=== PATIENT | female | born 1935 | race Caucasian/White ===

== ENCOUNTER 2017-08-29 08:43 | Inpatient (IN) ==
[2017-08-29 09:29] LABS: Basophils % 0.3 % (0.0-0.8); Eosinophils # 0.2 10*3/uL (0.0-0.87); Eosinophils % 3.9 % (0.00-10.9); Hematocrit 37.1 VOL% (35.7-47.0); Hemoglobin 12.1 GM/DL (12.0-16.0); Immature Granulocytes % 0.3 %; Immature Granulocytes Absolute 0.02 #; Lymphocytes % 16.4 % (21.3-54.2); Mean Corpuscular HGB Conc 32.6 GM/DL (32-36); Mean Corpuscular Hemoglobin 31 PG (27-34); Mean Corpuscular Volume 96.1 FL (87-102); Mean Platelet Volume 10.2 FL (9.6-12.0); Monocytes # 0.4 10*3/uL (0.11-0.8); Monocytes % 6.7 % (1.7-12.7); Neutrophils # 4.4 10*3/uL (1.4-7.4); Neutrophils % 72.4 % (38.7-73.9); Platelet Count 142 T/CUMM (130-400); Red Blood Count 3.86 MC/CUMM (3.8-5.5); Red Cell Distribution Width 13.2 % (9.3-17.3); White Blood Count 6.1 T/CUMM (4-12)
[2017-08-29 09:44] LABS: Calcium 8.8 MG/DL (8.5-10.1); Osmolality,Calculated 284.3 MOS/KG (273-304); Potassium 3.8 MMOL/L (3.5-5.1)
[2017-08-29] MEDS ORDERED: MORPHINE 2 MG/1 ML SYRINGE IV STA (10:19)
[2017-08-29] MEDS ORDERED: MORPHINE 2 MG/1 ML SYRINGE ONE (10:24)
[2017-08-29] MEDS ORDERED: LABETALOL 20 MG/4 ML SYRINGE IV STA (10:35)
[2017-08-29] MEDS ORDERED: LABETALOL 20 MG/4 ML SYRINGE IV ONE (10:37)
[2017-08-29] MEDS ORDERED: ONDANSETRON 4 MG/2 ML VIAL ONE (11:37)
[2017-08-29] MEDS ORDERED: ONDANSETRON 4 MG/2 ML VIAL IV STA (11:37)
[2017-08-29] MEDS ORDERED: oxyCODONE IR 5 MG TABLET PO PRN (14:13)
[2017-08-29] MEDS ORDERED: MORPHINE 2 MG/1 ML SYRINGE IV PRN (14:14)
[2017-08-29] MEDS ORDERED: TUBERCULIN SKIN TEST 0.1 ML SYRINGE INTRADERM ONE (15:00)
[2017-08-29] MEDS: CEFEPIME 2,000 MG in SYRINGE 1 EACH IV SCH ×2 (15:41→23:08)
[2017-08-29] MEDS: methylPREDNISolone SOD SUC 125 MG/2 ML VIAL IV SCH ×2 (15:51→22:11)
[2017-08-29] MEDS: PANTOPRAZOLE 40 MG TABLET PO SCH (15:53)
[2017-08-29] MEDS: LOSARTAN 50 MG TABLET PO SCH (15:55)
[2017-08-29] MEDS: NEBIVOLOL 10 MG TABLET PO SCH (15:55)
[2017-08-29] MEDS: ASPIRIN EC 81 MG TABLET PO SCH (15:55)
[2017-08-29] MEDS: LABETALOL 20 MG/4 ML SYRINGE IV PRN (18:31)
[2017-08-29] MEDS: VANCOMYCIN INJ 1,000 MG in SODIUM CHLORIDE 0.9% 250 ML IV SCH (18:35)
[2017-08-29] MEDS: CALCIUM (CARBONATE)/VITAMIN D 500 MG-200 UNIT TABLET PO SCH (22:10)
[2017-08-30 03:45] LABS: Hematocrit 34.2 VOL% (35.7-47.0); Hemoglobin 11.6 GM/DL (12.0-16.0); Immature Granulocytes % 0.6 %; Immature Granulocytes Absolute 0.04 #; Lymphocytes # 0.5 10*3/uL (1.4-4.0); Lymphocytes % 6.5 % (21.3-54.2); Mean Corpuscular HGB Conc 33.9 GM/DL (32-36); Mean Corpuscular Hemoglobin 31 PG (27-34); Mean Corpuscular Volume 92.4 FL (87-102); Mean Platelet Volume 10.6 FL (9.6-12.0); Monocytes # 0.1 10*3/uL (0.11-0.8); Monocytes % 1.5 % (1.7-12.7); Neutrophils # 6.6 10*3/uL (1.4-7.4); Neutrophils % 91.4 % (38.7-73.9); Platelet Count 125 T/CUMM (130-400); White Blood Count 7.2 T/CUMM (4-12)
[2017-08-30 04:16] LABS: Calcium 8.6 MG/DL (8.5-10.1); Osmolality,Calculated 274.2 MOS/KG (273-304); Potassium 3.8 MMOL/L (3.5-5.1); Risk Ratio 3.52; VLDL CHOLESTEROL 8.6 MG/DL
[2017-08-30 04:51] LABS: Band Neutrophils 5 % (0-10); Lymphocytes 6 % (20-55); Platelet Estimate Adequate; Segmented Neutrophils 89 % (50-85); Total Cells Counted 100
[2017-08-30] MEDS: methylPREDNISolone SOD SUC 125 MG/2 ML VIAL IV SCH ×3 (06:12→22:44)
[2017-08-30] MEDS: CEFEPIME 2,000 MG in SYRINGE 1 EACH IV SCH ×3 (06:31→22:43)
[2017-08-30 07:16] LABS: Apearance,Urine CLEAR (Clear); Bilirubin,Urine Negative (Negative); Blood, Urine Negative (Negative); Glucose,Urine (UA) Negative (Negative); Ketones,Urine Negative (Negative); Mucus,Urine Occasional /LPF (Occasional); Nitrite,Urine Negative (Negative); Protein,Urine Negative; RBC,Urine 1 /HPF (0-4); Squamous Epithelial Cell,Urine Occasional /HPF (0-10); Urine Color Straw (Yellow); Urine Specific Gravity 1.006 (1.001-1.035); Urine Urobilinogen < 2.0 EU/DL (0.2-1.0); WBC,Urine <1 /HPF (0-6)
[2017-08-30] MEDS: NEBIVOLOL 10 MG TABLET PO SCH ×2 (07:35→09:35)
[2017-08-30] MEDS: LOSARTAN 50 MG TABLET PO SCH ×2 (07:36→09:35)
[2017-08-30] MEDS: CALCIUM (CARBONATE)/VITAMIN D 500 MG-200 UNIT TABLET PO SCH ×3 (07:37→20:28)
[2017-08-30] MEDS: ASPIRIN EC 81 MG TABLET PO SCH ×2 (07:37→09:35)
[2017-08-30] MEDS: PANTOPRAZOLE 40 MG TABLET PO SCH ×2 (07:38→09:36)
[2017-08-30] MEDS: ACETAMINOPHEN 325 MG TABLET PO PRN (07:38)
[2017-08-30 11:57] LABS: Fibrinogen Quant Value 407 MG% (200-400); PT Patient Result 10.6 SECS; Partial Thromboplastin Time 26.5 SECS (0-40)
[2017-08-30] MEDS: LABETALOL 20 MG/4 ML SYRINGE IV PRN (15:43)
[2017-08-30] MEDS: VANCOMYCIN INJ 1,000 MG in SODIUM CHLORIDE 0.9% 250 ML IV SCH (18:22)
[2017-08-30] MEDS ORDERED: diphenhydrAMINE 50 MG/1 ML VIAL IV PRN (20:01)
[2017-08-31 04:51] LABS: Basophils % 0.1 % (0.0-0.8); Hematocrit 31.4 VOL% (35.7-47.0); Hemoglobin 10.7 GM/DL (12.0-16.0); Immature Granulocytes % 0.6 %; Immature Granulocytes Absolute 0.08 #; Lymphocytes # 0.7 10*3/uL (1.4-4.0); Lymphocytes % 4.9 % (21.3-54.2); Mean Corpuscular HGB Conc 34.1 GM/DL (32-36); Mean Corpuscular Hemoglobin 32 PG (27-34); Mean Corpuscular Volume 93.2 FL (87-102); Mean Platelet Volume 10.9 FL (9.6-12.0); Monocytes # 0.4 10*3/uL (0.11-0.8); Monocytes % 2.9 % (1.7-12.7); Neutrophils # 12.8 10*3/uL (1.4-7.4); Neutrophils % 91.5 % (38.7-73.9); Platelet Count 122 T/CUMM (130-400); Red Blood Count 3.37 MC/CUMM (3.8-5.5); Red Cell Distribution Width 13.3 % (9.3-17.3)
[2017-08-31 05:16] LABS: Band Neutrophils 1 % (0-10); Lymphocytes 2 % (20-55); Platelet Estimate Normal; Segmented Neutrophils 95 % (50-85); Total Cells Counted 100
[2017-08-31 05:17] LABS: Osmolality,Calculated 278.8 MOS/KG (273-304); Potassium 3.9 MMOL/L (3.5-5.1)
[2017-08-31] MEDS: methylPREDNISolone SOD SUC 125 MG/2 ML VIAL IV SCH ×3 (06:01→22:23)
[2017-08-31] MEDS: CEFEPIME 2,000 MG in SYRINGE 1 EACH IV SCH ×3 (06:32→22:24)
[2017-08-31] MEDS: LOSARTAN 50 MG TABLET PO SCH (08:25)
[2017-08-31] MEDS: ASPIRIN EC 81 MG TABLET PO SCH (08:25)
[2017-08-31] MEDS: PANTOPRAZOLE 40 MG TABLET PO SCH (08:25)
[2017-08-31] MEDS: NEBIVOLOL 10 MG TABLET PO SCH (08:25)
[2017-08-31] MEDS: CALCIUM (CARBONATE)/VITAMIN D 500 MG-200 UNIT TABLET PO SCH ×2 (08:25→20:58)
[2017-08-31] MEDS ORDERED: MAGNESIUM HYDROXIDE SUSP 30 ML UDCUP PO PRN (13:57)
[2017-08-31] MEDS: POLYETHYLENE GLYCOL POWDER 17 GM PACK PO SCH (14:11)
[2017-08-31] MEDS: hydrALAZINE 10 MG TABLET PO SCH ×2 (14:11→20:58)
[2017-08-31] MEDS: VANCOMYCIN INJ 1,000 MG in SODIUM CHLORIDE 0.9% 250 ML IV SCH (16:34)
[2017-09-01] MEDS: ACETAMINOPHEN 325 MG TABLET PO PRN (01:34)
[2017-09-01 04:41] LABS: Basophils % 0.1 % (0.0-0.8); Hematocrit 28.9 VOL% (35.7-47.0); Hemoglobin 9.7 GM/DL (12.0-16.0); Immature Granulocytes % 1.2 %; Immature Granulocytes Absolute 0.15 #; Lymphocytes # 0.7 10*3/uL (1.4-4.0); Lymphocytes % 5.4 % (21.3-54.2); Mean Corpuscular HGB Conc 33.6 GM/DL (32-36); Mean Corpuscular Hemoglobin 32 PG (27-34); Mean Corpuscular Volume 94.1 FL (87-102); Mean Platelet Volume 10.9 FL (9.6-12.0); Monocytes # 0.4 10*3/uL (0.11-0.8); Monocytes % 3.3 % (1.7-12.7); Neutrophils # 11.6 10*3/uL (1.4-7.4); Platelet Count 132 T/CUMM (130-400); Red Blood Count 3.07 MC/CUMM (3.8-5.5); Red Cell Distribution Width 13.5 % (9.3-17.3); White Blood Count 12.9 T/CUMM (4-12)
[2017-09-01] MEDS: methylPREDNISolone SOD SUC 125 MG/2 ML VIAL IV SCH ×3 (05:38→21:29)
[2017-09-01] MEDS: CEFEPIME 2,000 MG in SYRINGE 1 EACH IV SCH ×3 (06:06→23:29)
[2017-09-01 07:08] LABS: Sedimentation Rate-Westergren 68 MM/HR (0-30)
[2017-09-01] MEDS: CALCIUM (CARBONATE)/VITAMIN D 500 MG-200 UNIT TABLET PO SCH ×2 (09:25→21:28)
[2017-09-01] MEDS: POLYETHYLENE GLYCOL POWDER 17 GM PACK PO SCH (09:25)
[2017-09-01] MEDS: NEBIVOLOL 10 MG TABLET PO SCH (09:25)
[2017-09-01] MEDS: ASPIRIN EC 81 MG TABLET PO SCH (09:26)
[2017-09-01] MEDS: LOSARTAN 50 MG TABLET PO SCH (09:26)
[2017-09-01] MEDS: PANTOPRAZOLE 40 MG TABLET PO SCH (09:26)
[2017-09-01] MEDS: hydrALAZINE 10 MG TABLET PO SCH ×3 (09:27→21:28)
[2017-09-01] MEDS: VANCOMYCIN INJ 1,000 MG in SODIUM CHLORIDE 0.9% 250 ML IV SCH (17:40)
[2017-09-01] MEDS: diphenhydrAMINE CAP 25 MG CAPSULE PO PRN (21:28)
[2017-09-02] MEDS: LABETALOL 100 MG/20 ML VIAL IV PRN (05:08)
[2017-09-02 05:36] LABS: Basophils % 0.2 % (0.0-0.8); Hematocrit 37.4 VOL% (35.7-47.0); Immature Granulocytes % 1.8 %; Immature Granulocytes Absolute 0.21 #; Lymphocytes # 1.1 10*3/uL (1.4-4.0); Lymphocytes % 9.1 % (21.3-54.2); Mean Corpuscular HGB Conc 32.1 GM/DL (32-36); Mean Corpuscular Hemoglobin 31 PG (27-34); Mean Corpuscular Volume 97.4 FL (87-102); Mean Platelet Volume 11.3 FL (9.6-12.0); Monocytes # 0.5 10*3/uL (0.11-0.8); Monocytes % 3.9 % (1.7-12.7); Neutrophils # 9.8 10*3/uL (1.4-7.4); Platelet Count 188 T/CUMM (130-400); Red Blood Count 3.84 MC/CUMM (3.8-5.5); Red Cell Distribution Width 13.6 % (9.3-17.3); White Blood Count 11.5 T/CUMM (4-12)
[2017-09-02] MEDS: methylPREDNISolone SOD SUC 125 MG/2 ML VIAL IV SCH ×2 (06:04→17:24)
[2017-09-02] MEDS: CEFEPIME 2,000 MG in SYRINGE 1 EACH IV SCH ×3 (06:06→23:03)
[2017-09-02 06:14] LABS: Calcium 9.5 MG/DL (8.5-10.1); Magnesium 2.7 MG/DL (1.8-2.4); Osmolality,Calculated 281.7 MOS/KG (273-304); Potassium 3.6 MMOL/L (3.5-5.1)
[2017-09-02] MEDS: LOSARTAN 50 MG TABLET PO SCH (09:37)
[2017-09-02] MEDS: CALCIUM (CARBONATE)/VITAMIN D 500 MG-200 UNIT TABLET PO SCH ×2 (09:37→21:06)
[2017-09-02] MEDS: hydrALAZINE 10 MG TABLET PO SCH ×3 (09:37→21:06)
[2017-09-02] MEDS: NEBIVOLOL 10 MG TABLET PO SCH (09:37)
[2017-09-02] MEDS: ASPIRIN EC 81 MG TABLET PO SCH (09:37)
[2017-09-02] MEDS: PANTOPRAZOLE 40 MG TABLET PO SCH (09:38)
[2017-09-02] MEDS: POLYETHYLENE GLYCOL POWDER 17 GM PACK PO SCH (09:38)
[2017-09-02] MEDS ORDERED: clonazePAM 0.5 MG TABLET PO PRN (10:02)
[2017-09-02 12:53] LABS: Basophils % 0.1 % (0.0-0.8); Hematocrit 34.3 VOL% (35.7-47.0); Hemoglobin 11.5 GM/DL (12.0-16.0); Immature Granulocytes % 2.2 %; Immature Granulocytes Absolute 0.21 #; Lymphocytes # 0.4 10*3/uL (1.4-4.0); Lymphocytes % 4.6 % (21.3-54.2); Mean Corpuscular HGB Conc 33.5 GM/DL (32-36); Mean Corpuscular Hemoglobin 32 PG (27-34); Mean Corpuscular Volume 95.8 FL (87-102); Monocytes # 0.9 10*3/uL (0.11-0.8); NRBC # 0.02 10*3/uL; Neutrophils # 7.9 10*3/uL (1.4-7.4); Neutrophils % 84.1 % (38.7-73.9); Platelet Count 164 T/CUMM (130-400); Red Blood Count 3.58 MC/CUMM (3.8-5.5); Red Cell Distribution Width 13.4 % (9.3-17.3); White Blood Count 9.4 T/CUMM (4-12)
[2017-09-02 13:14] LABS: Angiotensin Converting Enzyme 56 U/L (8 - 53)
[2017-09-02 13:41] LABS: Hypersegmented Neutrophil 1+; Lymphocytes 4 % (20-55); Ovalocytes Slight; Platelet Estimate Adequate; Poikilocytosis Slight; Segmented Neutrophils 91 % (50-85); Total Cells Counted 100
[2017-09-02 13:42] LABS: Polychromasia Slight
[2017-09-02] MEDS ORDERED: HALOPERIDOL 5 MG/ML AMP IM PRN (17:30)
[2017-09-02 18:21] LABS: TB Ag minue Nil Result 0 IU/mL
[2017-09-02] MEDS: ENOXAPARIN 80 MG/0.8 ML SYRINGE SUBCUT SCH (18:47)
[2017-09-02] MEDS: VANCOMYCIN INJ 1,000 MG in SODIUM CHLORIDE 0.9% 250 ML IV SCH (21:05)
[2017-09-03] MEDS: ONDANSETRON 4 MG/2 ML VIAL IV PRN (00:25)
[2017-09-03] MEDS: LABETALOL 100 MG/20 ML VIAL IV PRN (00:27)
[2017-09-03] MEDS: methylPREDNISolone SOD SUC 40 MG/1 ML VIAL IV SCH ×3 (02:45→18:52)
[2017-09-03] MEDS: CEFEPIME 2,000 MG in SYRINGE 1 EACH IV SCH (06:05)
[2017-09-03 06:15] LABS: Basophils % 0.1 % (0.0-0.8); Hematocrit 32.3 VOL% (35.7-47.0); Hemoglobin 10.6 GM/DL (12.0-16.0); Immature Granulocytes Absolute 0.16 #; Lymphocytes # 0.5 10*3/uL (1.4-4.0); Lymphocytes % 5.5 % (21.3-54.2); Mean Corpuscular HGB Conc 32.8 GM/DL (32-36); Mean Corpuscular Hemoglobin 31 PG (27-34); Mean Corpuscular Volume 94.2 FL (87-102); Mean Platelet Volume 10.5 FL (9.6-12.0); Monocytes # 0.3 10*3/uL (0.11-0.8); Monocytes % 4.2 % (1.7-12.7); Neutrophils # 7.2 10*3/uL (1.4-7.4); Neutrophils % 88.2 % (38.7-73.9); Platelet Count 153 T/CUMM (130-400); Red Blood Count 3.43 MC/CUMM (3.8-5.5); Red Cell Distribution Width 13.6 % (9.3-17.3); White Blood Count 8.1 T/CUMM (4-12)
[2017-09-03 06:42] LABS: Calcium 8.3 MG/DL (8.5-10.1); Magnesium 2.5 MG/DL (1.8-2.4); Osmolality,Calculated 284.7 MOS/KG (273-304); Potassium 4.2 MMOL/L (3.5-5.1)
[2017-09-03] MEDS: LOSARTAN 50 MG TABLET PO SCH (09:49)
[2017-09-03] MEDS: NEBIVOLOL 10 MG TABLET PO SCH (09:49)
[2017-09-03] MEDS: POLYETHYLENE GLYCOL POWDER 17 GM PACK PO SCH (09:49)
[2017-09-03] MEDS: CALCIUM (CARBONATE)/VITAMIN D 500 MG-200 UNIT TABLET PO SCH ×2 (09:50→21:13)
[2017-09-03] MEDS: PANTOPRAZOLE 40 MG TABLET PO SCH (09:50)
[2017-09-03] MEDS: ASPIRIN EC 81 MG TABLET PO SCH (09:50)
[2017-09-03] MEDS: hydrALAZINE 10 MG TABLET PO SCH ×2 (09:50→15:23)
[2017-09-03] MEDS: VANCOMYCIN INJ 1,000 MG in SODIUM CHLORIDE 0.9% 250 ML IV SCH (14:25)
[2017-09-03] MEDS: diphenhydrAMINE CAP 25 MG CAPSULE PO PRN (14:37)
[2017-09-03] MEDS: ENOXAPARIN 80 MG/0.8 ML SYRINGE SUBCUT SCH (18:10)
[2017-09-03] MEDS: ROSUVASTATIN 10 MG TABLET PO SCH (21:13)
[2017-09-03] MEDS: EZETIMIBE 10 MG TABLET PO SCH (21:13)
[2017-09-04] MEDS: methylPREDNISolone SOD SUC 40 MG/1 ML VIAL IV SCH ×3 (02:55→18:27)
[2017-09-04 04:33] LABS: Basophils % 0.2 % (0.0-0.8); Hematocrit 35.3 VOL% (35.7-47.0); Hemoglobin 11.4 GM/DL (12.0-16.0); Immature Granulocytes % 4.2 %; Immature Granulocytes Absolute 0.35 #; Lymphocytes # 0.7 10*3/uL (1.4-4.0); Lymphocytes % 8.2 % (21.3-54.2); Mean Corpuscular HGB Conc 32.3 GM/DL (32-36); Mean Corpuscular Hemoglobin 31 PG (27-34); Mean Corpuscular Volume 94.4 FL (87-102); Mean Platelet Volume 10.8 FL (9.6-12.0); Monocytes # 0.4 10*3/uL (0.11-0.8); NRBC # 0.03 10*3/uL; Neutrophils # 6.9 10*3/uL (1.4-7.4); Neutrophils % 82.4 % (38.7-73.9); Platelet Count 182 T/CUMM (130-400); Red Blood Count 3.74 MC/CUMM (3.8-5.5); Red Cell Distribution Width 13.7 % (9.3-17.3); White Blood Count 8.4 T/CUMM (4-12)
[2017-09-04 05:13] LABS: Calcium 8.7 MG/DL (8.5-10.1); Osmolality,Calculated 285.8 MOS/KG (273-304); Potassium 3.8 MMOL/L (3.5-5.1)
[2017-09-04] MEDS: CALCIUM (CARBONATE)/VITAMIN D 500 MG-200 UNIT TABLET PO SCH ×2 (10:57→20:24)
[2017-09-04] MEDS: POLYETHYLENE GLYCOL POWDER 17 GM PACK PO SCH (10:57)
[2017-09-04] MEDS: NEBIVOLOL 10 MG TABLET PO SCH (10:57)
[2017-09-04] MEDS: LOSARTAN 50 MG TABLET PO SCH (10:57)
[2017-09-04] MEDS: ASPIRIN EC 81 MG TABLET PO SCH (10:58)
[2017-09-04] MEDS: PANTOPRAZOLE 40 MG TABLET PO SCH (10:58)
[2017-09-04 12:08] LABS: Total Protein,Body Fluid 2.2 G/DL
[2017-09-04 12:16] LABS: Lymphocytes,Pleural Fluid 93 %; Monocytes,Pleural Fluid 4 %; Neutrophils,Pleural Fluid 3 %
[2017-09-04 12:17] LABS: RBC,Pleural Fluid > 100000 T/CUMM
[2017-09-04 13:50] LABS: Myeloperoxidase Antibody < 0.2 U
[2017-09-04] MEDS: ROSUVASTATIN 10 MG TABLET PO SCH (20:24)
[2017-09-04] MEDS: EZETIMIBE 10 MG TABLET PO SCH (20:24)
[2017-09-05] MEDS: methylPREDNISolone SOD SUC 40 MG/1 ML VIAL IV SCH ×3 (02:32→18:40)
[2017-09-05 05:06] LABS: Basophils % 0.2 % (0.0-0.8); Hemoglobin 12.6 GM/DL (12.0-16.0); Immature Granulocytes % 4.2 %; Immature Granulocytes Absolute 0.44 #; Lymphocytes # 0.6 10*3/uL (1.4-4.0); Lymphocytes % 5.9 % (21.3-54.2); Mean Corpuscular HGB Conc 33.2 GM/DL (32-36); Mean Corpuscular Hemoglobin 31 PG (27-34); Mean Corpuscular Volume 94.1 FL (87-102); Mean Platelet Volume 10.2 FL (9.6-12.0); Monocytes # 0.4 10*3/uL (0.11-0.8); Monocytes % 4.1 % (1.7-12.7); NRBC # 0.03 10*3/uL; Neutrophils % 85.6 % (38.7-73.9); Platelet Count 216 T/CUMM (130-400); Red Blood Count 4.04 MC/CUMM (3.8-5.5); Red Cell Distribution Width 13.8 % (9.3-17.3); White Blood Count 10.5 T/CUMM (4-12)
[2017-09-05 05:36] LABS: Magnesium 2.6 MG/DL (1.8-2.4); Potassium 4.2 MMOL/L (3.5-5.1)
[2017-09-05] MEDS: NEBIVOLOL 10 MG TABLET PO SCH (10:40)
[2017-09-05] MEDS: ASPIRIN EC 81 MG TABLET PO SCH (10:41)
[2017-09-05] MEDS: CALCIUM (CARBONATE)/VITAMIN D 500 MG-200 UNIT TABLET PO SCH ×2 (10:41→20:51)
[2017-09-05] MEDS: LOSARTAN 50 MG TABLET PO SCH (10:41)
[2017-09-05] MEDS: PANTOPRAZOLE 40 MG TABLET PO SCH (10:41)
[2017-09-05] MEDS: POLYETHYLENE GLYCOL POWDER 17 GM PACK PO SCH (10:42)
[2017-09-05] MEDS: ONDANSETRON 4 MG/2 ML VIAL IV PRN (19:48)
[2017-09-05] MEDS: EZETIMIBE 10 MG TABLET PO SCH (20:52)
[2017-09-05] MEDS: ROSUVASTATIN 10 MG TABLET PO SCH (20:52)
[2017-09-06] MEDS: methylPREDNISolone SOD SUC 40 MG/1 ML VIAL IV SCH ×3 (02:25→18:08)
[2017-09-06] MEDS: ACETAMINOPHEN 325 MG TABLET PO PRN (02:30)
[2017-09-06 05:54] LABS: Basophils % 0.3 % (0.0-0.8); Hematocrit 39.6 VOL% (35.7-47.0); Hemoglobin 13.1 GM/DL (12.0-16.0); Immature Granulocytes % 3.9 %; Immature Granulocytes Absolute 0.46 #; Lymphocytes # 0.7 10*3/uL (1.4-4.0); Lymphocytes % 6.1 % (21.3-54.2); Mean Corpuscular HGB Conc 33.1 GM/DL (32-36); Mean Corpuscular Hemoglobin 31 PG (27-34); Mean Platelet Volume 10.4 FL (9.6-12.0); Monocytes # 0.5 10*3/uL (0.11-0.8); Neutrophils # 10.1 10*3/uL (1.4-7.4); Neutrophils % 85.7 % (38.7-73.9); Platelet Count 236 T/CUMM (130-400); Red Blood Count 4.17 MC/CUMM (3.8-5.5); Red Cell Distribution Width 14.1 % (9.3-17.3); White Blood Count 11.8 T/CUMM (4-12)
[2017-09-06 06:40] LABS: Calcium 9.1 MG/DL (8.5-10.1); Magnesium 2.6 MG/DL (1.8-2.4); Osmolality,Calculated 278.4 MOS/KG (273-304); Potassium 4.4 MMOL/L (3.5-5.1)
[2017-09-06] MEDS: POLYETHYLENE GLYCOL POWDER 17 GM PACK PO SCH (11:20)
[2017-09-06] MEDS: LOSARTAN 50 MG TABLET PO SCH (11:21)
[2017-09-06] MEDS: CALCIUM (CARBONATE)/VITAMIN D 500 MG-200 UNIT TABLET PO SCH ×2 (11:21→21:15)
[2017-09-06] MEDS: NEBIVOLOL 10 MG TABLET PO SCH (11:22)
[2017-09-06] MEDS: ASPIRIN EC 81 MG TABLET PO SCH (11:22)
[2017-09-06] MEDS: PANTOPRAZOLE 40 MG TABLET PO SCH (11:23)
[2017-09-06 20:38] LABS: Apearance,Urine CLEAR (Clear); Bilirubin,Urine Negative (Negative); Blood, Urine Negative (Negative); Glucose,Urine (UA) Negative (Negative); Hyaline Casts,Urine 7 /LPF (0-3); Ketones,Urine Negative (Negative); Mucus,Urine Occasional /LPF (Occasional); Nitrite,Urine Negative (Negative); Protein,Urine Negative; RBC,Urine 1 /HPF (0-4); Squamous Epithelial Cell,Urine Occasional /HPF (0-10); Urine Color Yellow (Yellow); Urine Specific Gravity 1.018 (1.001-1.035); Urine Urobilinogen < 2.0 EU/DL (0.2-1.0); WBC,Urine 1 /HPF (0-6)
[2017-09-06] MEDS: ROSUVASTATIN 10 MG TABLET PO SCH (21:15)
[2017-09-06] MEDS: EZETIMIBE 10 MG TABLET PO SCH (21:16)
[2017-09-06] MEDS: diphenhydrAMINE CAP 25 MG CAPSULE PO PRN (21:27)
[2017-09-07] MEDS: ACETAMINOPHEN 325 MG TABLET PO PRN (01:55)
[2017-09-07] MEDS: methylPREDNISolone SOD SUC 40 MG/1 ML VIAL IV SCH (02:42)
[2017-09-07] MEDS: NEBIVOLOL 10 MG TABLET PO SCH (11:10)
[2017-09-07] MEDS: CALCIUM (CARBONATE)/VITAMIN D 500 MG-200 UNIT TABLET PO SCH ×2 (11:11→21:28)
[2017-09-07] MEDS: ASPIRIN EC 81 MG TABLET PO SCH (11:11)
[2017-09-07] MEDS: LOSARTAN 50 MG TABLET PO SCH (11:11)
[2017-09-07] MEDS: PANTOPRAZOLE 40 MG TABLET PO SCH (11:11)
[2017-09-07] MEDS: POLYETHYLENE GLYCOL POWDER 17 GM PACK PO SCH (11:12)
[2017-09-07] MEDS: ROSUVASTATIN 10 MG TABLET PO SCH (21:28)
[2017-09-07] MEDS: EZETIMIBE 10 MG TABLET PO SCH (21:30)
[2017-09-08] MEDS: methylPREDNISolone SOD SUC 40 MG/1 ML VIAL IV SCH (09:21)
[2017-09-08] MEDS: POLYETHYLENE GLYCOL POWDER 17 GM PACK PO SCH (09:51)
[2017-09-08] MEDS: ASPIRIN EC 81 MG TABLET PO SCH (09:52)
[2017-09-08] MEDS: NEBIVOLOL 10 MG TABLET PO SCH (09:52)
[2017-09-08] MEDS: PANTOPRAZOLE 40 MG TABLET PO SCH (09:52)
[2017-09-08] MEDS: LOSARTAN 50 MG TABLET PO SCH (09:52)
[2017-09-08] MEDS: CALCIUM (CARBONATE)/VITAMIN D 500 MG-200 UNIT TABLET PO SCH ×2 (09:52→22:10)
[2017-09-08] MEDS: ONDANSETRON 4 MG/2 ML VIAL IV PRN (12:03)
[2017-09-08] MEDS: EZETIMIBE 10 MG TABLET PO SCH (22:10)
[2017-09-08] MEDS: ROSUVASTATIN 10 MG TABLET PO SCH (22:10)
[2017-09-09 05:47] LABS: Basophils % 0.3 % (0.0-0.8); Eosinophils # 0.1 10*3/uL (0.0-0.87); Hematocrit 40.5 VOL% (35.7-47.0); Hemoglobin 13.9 GM/DL (12.0-16.0); Immature Granulocytes % 4.3 %; Immature Granulocytes Absolute 0.42 #; Lymphocytes # 0.9 10*3/uL (1.4-4.0); Lymphocytes % 9.5 % (21.3-54.2); Mean Corpuscular HGB Conc 34.3 GM/DL (32-36); Mean Corpuscular Hemoglobin 32 PG (27-34); Mean Corpuscular Volume 92.5 FL (87-102); Mean Platelet Volume 9.7 FL (9.6-12.0); Monocytes # 0.6 10*3/uL (0.11-0.8); Monocytes % 6.3 % (1.7-12.7); Neutrophils # 7.7 10*3/uL (1.4-7.4); Neutrophils % 78.6 % (38.7-73.9); Platelet Count 183 T/CUMM (130-400); Red Blood Count 4.38 MC/CUMM (3.8-5.5); Red Cell Distribution Width 13.9 % (9.3-17.3); White Blood Count 9.8 T/CUMM (4-12)
[2017-09-09 06:19] LABS: Calcium 8.6 MG/DL (8.5-10.1); Magnesium 2.4 MG/DL (1.8-2.4); Osmolality,Calculated 276.7 MOS/KG (273-304); Potassium 4.7 MMOL/L (3.5-5.1)
[2017-09-09] MEDS: ASPIRIN EC 81 MG TABLET PO SCH (10:16)
[2017-09-09] MEDS: NEBIVOLOL 10 MG TABLET PO SCH (10:16)
[2017-09-09] MEDS: CALCIUM (CARBONATE)/VITAMIN D 500 MG-200 UNIT TABLET PO SCH (10:16)
[2017-09-09] MEDS: POLYETHYLENE GLYCOL POWDER 17 GM PACK PO SCH (10:17)
[2017-09-09] MEDS: PANTOPRAZOLE 40 MG TABLET PO SCH (10:17)
[2017-09-09] MEDS: LOSARTAN 50 MG TABLET PO SCH (10:19)
[2017-09-09 12:27] VITALS: BP 107/67
== END 2017-09-09 15:45 | disposition home health service (06) | DRG 178 ==
LOC: N.ED 08:43 → N.EDINP 11:38 → SUATTDRO 11:38 → N.TELES 13:48
PROVIDERS: ADMIT Internal Medicine; ATTEND Internal Medicine

== ENCOUNTER 2018-11-23 14:33 | Inpatient (IN) ==
[2018-11-23] MEDS ORDERED: DOCUSATE SODIUM 100 MG CAPSULE PO PRN (15:50)
[2018-11-23] MEDS ORDERED: PROMETHAZINE 25 MG/1 ML VIAL IM PRN (15:50)
[2018-11-23] MEDS ORDERED: LACTULOSE 20 GM/30 ML UDCUP PO SCH (16:00)
[2018-11-23 16:48] LABS: Basophils % 0.3 % (0.0-0.8); Eosinophils # 0.1 10*3/uL (0.0-0.87); Eosinophils % 2.2 % (0.00-10.9); Hematocrit 25.5 VOL% (35.7-47.0); Hemoglobin 7.8 GM/DL (12.0-16.0); Immature Granulocytes % 1.6 %; Immature Granulocytes Absolute 0.05 #; Lymphocytes # 0.5 10*3/uL (1.4-4.0); Lymphocytes % 15.4 % (21.3-54.2); Mean Corpuscular HGB Conc 30.6 GM/DL (32-36); Mean Corpuscular Hemoglobin 30 PG (27-34); Mean Corpuscular Volume 99.2 FL (87-102); Mean Platelet Volume 9.5 FL (9.6-12.0); Monocytes # 0.2 10*3/uL (0.11-0.8); Monocytes % 7.2 % (1.7-12.7); Neutrophils # 2.3 10*3/uL (1.4-7.4); Neutrophils % 73.3 % (38.7-73.9); Platelet Count 144 T/CUMM (130-400); Red Blood Count 2.57 MC/CUMM (3.8-5.5); Red Cell Distribution Width 14.4 % (9.3-17.3); White Blood Count 3.2 T/CUMM (4-12)
[2018-11-23 17:06] LABS: Albumin 3.3 G/DL (3.4-5.0); Bilirubin,Total 1.1 MG/DL (0.2-1.0); Calcium 8.7 MG/DL (8.5-10.1); Osmolality,Calculated 288.4 MOS/KG (273-304); Potassium 3.7 MMOL/L (3.5-5.1); Total Protein 7.5 G/DL (6.4-8.3)
[2018-11-23 17:12] LABS: Thyroid Stimulating Hormone 2.83 uIU/ml (0.358-3.74)
[2018-11-23 17:22] LABS: Ferritin 77.9 ng/ml (8-252)
[2018-11-23 17:28] LABS: Folate > 24.0 NG/ML (5.4-24.0); Vitamin B12 421 PG/ML (211-911)
[2018-11-23] MEDS ORDERED: cefTRIAXone 1,000 MG in SYRINGE 1 EACH IV SCH (17:30)
[2018-11-23] MEDS ORDERED: LACTULOSE 20 GM/30 ML UDCUP PO PRN (17:37)
[2018-11-23] MEDS ORDERED: CYANOCOBALAMIN 1000 MCG/1 ML VIAL IM ONE (17:38)
[2018-11-23] MEDS: LACTATED RINGERS 1,000 ML IV SCH (17:45)
[2018-11-23] MEDS: AZITHROMYCIN INJ 500 MG in SODIUM CHLORIDE 0.9% 250 ML IV SCH (17:53)
[2018-11-23] MEDS ORDERED: INFLUENZA VIRUS VACCINE 0.5 ML SYRINGE IM ONE (20:46)
[2018-11-23] MEDS: EZETIMIBE 10 MG TABLET PO SCH (21:40)
[2018-11-23] MEDS: MONTELUKAST 10 MG TABLET PO SCH (21:40)
[2018-11-23] MEDS: ROSUVASTATIN 10 MG TABLET PO SCH (21:41)
[2018-11-23] MEDS: guaiFENesin/DM ER 600-30 MG TABLET PO SCH (21:41)
[2018-11-24] MEDS: LACTATED RINGERS 1,000 ML IV SCH ×3 (03:29→18:33)
[2018-11-24 06:43] LABS: Risk Ratio 3.08; VLDL CHOLESTEROL 14.4 MG/DL
[2018-11-24 06:44] LABS: Albumin 2.6 G/DL (3.4-5.0); Bilirubin,Total 0.6 MG/DL (0.2-1.0); Calcium 8.1 MG/DL (8.5-10.1); Osmolality,Calculated 284.5 MOS/KG (273-304); Potassium 3.9 MMOL/L (3.5-5.1); Total Protein 5.9 G/DL (6.4-8.3)
[2018-11-24 07:01] LABS: Basophils % 0.3 % (0.0-0.8); Eosinophils # 0.1 10*3/uL (0.0-0.87); Hematocrit 20.5 VOL% (35.7-47.0); Hemoglobin 6.5 GM/DL (12.0-16.0); Immature Granulocytes % 1.1 %; Immature Granulocytes Absolute 0.04 #; Lymphocytes # 0.6 10*3/uL (1.4-4.0); Lymphocytes % 16.6 % (21.3-54.2); Mean Corpuscular HGB Conc 31.7 GM/DL (32-36); Mean Corpuscular Hemoglobin 31 PG (27-34); Mean Corpuscular Volume 98.6 FL (87-102); Mean Platelet Volume 9.8 FL (9.6-12.0); Monocytes # 0.3 10*3/uL (0.11-0.8); Monocytes % 7.4 % (1.7-12.7); Neutrophils # 2.5 10*3/uL (1.4-7.4); Neutrophils % 72.6 % (38.7-73.9); Platelet Count 120 T/CUMM (130-400); Red Blood Count 2.08 MC/CUMM (3.8-5.5); Red Cell Distribution Width 14.4 % (9.3-17.3); White Blood Count 3.5 T/CUMM (4-12)
[2018-11-24] MEDS ORDERED: SODIUM CHLORIDE 0.9% 1,000 ML IV PRN (07:11)
[2018-11-24 07:18] LABS: Band Neutrophils 1 % (0-10); Eosinophils 2 % (0-10); Lymphocytes 14 % (20-55); Segmented Neutrophils 78 % (50-85); Total Cells Counted 100
[2018-11-24 07:20] LABS: Hypochromasia Slight; Microcytosis 1+; Platelet Estimate Adequate
[2018-11-24] MEDS ORDERED: ASPIRIN EC 81 MG TABLET PO SCH (09:00)
[2018-11-24] MEDS ORDERED: PANTOPRAZOLE 40 MG TABLET PO SCH (09:00)
[2018-11-24] MEDS ORDERED: LOSARTAN 50 MG TABLET PO SCH (09:00)
[2018-11-24] MEDS: guaiFENesin/DM ER 600-30 MG TABLET PO SCH ×2 (09:05→21:10)
[2018-11-24] MEDS: PYRIDOXINE 100 MG TABLET PO SCH (09:05)
[2018-11-24] MEDS: CALCIUM (CARBONATE)/VITAMIN D 500 MG-200 UNIT TABLET PO SCH (09:06)
[2018-11-24] MEDS: NEBIVOLOL 10 MG TABLET PO SCH (09:06)
[2018-11-24] MEDS: PANTOPRAZOLE 40 MG TABLET PO SCH (09:06)
[2018-11-24] MEDS: ONDANSETRON 4 MG/2 ML VIAL IV PRN ×2 (09:09→17:11)
[2018-11-24] MEDS: CEFEPIME 2,000 MG in SYRINGE 1 EACH IV SCH (11:03)
[2018-11-24] MEDS: FERRIC GLUCONATE COMPLEX 125 MG in SODIUM CHLORIDE 0.9% 100 ML IV SCH (11:04)
[2018-11-24 11:55] LABS: Apearance,Urine CLEAR (Clear); Bilirubin,Urine Negative (Negative); Blood, Urine Large mg/dL (Negative); Glucose,Urine (UA) Negative (Negative); Ketones,Urine Negative (Negative); Nitrite,Urine Negative (Negative); Protein,Urine Negative; Urine Color Yellow (Yellow); Urine Specific Gravity 1.012 (1.001-1.035); Urine Urobilinogen < 2.0 EU/DL (0.2-1.0)
[2018-11-24 12:16] LABS: Bacteria,Urine 1+ /HPF (Few); WBC,Urine 5 /HPF (0-6)
[2018-11-24 15:54] LABS: Microalbum Ur Quant Random 36.6 MG/L (0-20); Microalbum/Creat Ratio Random 52.3 RATIO (0-30)
[2018-11-24] MEDS: AZITHROMYCIN INJ 500 MG in SODIUM CHLORIDE 0.9% 250 ML IV SCH (18:46)
[2018-11-24] MEDS: ALBUTEROL/IPRATROPIUM 3 ML NEB RESP TX SCH (19:36)
[2018-11-24] MEDS: EZETIMIBE 10 MG TABLET PO SCH (21:10)
[2018-11-24] MEDS: MONTELUKAST 10 MG TABLET PO SCH (21:10)
[2018-11-24] MEDS: ROSUVASTATIN 10 MG TABLET PO SCH (21:10)
[2018-11-24] MEDS ORDERED: FUROSEMIDE 40 MG/4 ML VIAL IV ONE (21:52)
[2018-11-25] MEDS: ALBUTEROL/IPRATROPIUM 3 ML NEB RESP TX SCH ×4 (00:24→19:09)
[2018-11-25 02:04] LABS: Calcium 8.1 MG/DL (8.5-10.1); Osmolality,Calculated 280.8 MOS/KG (273-304); Potassium 3.7 MMOL/L (3.5-5.1)
[2018-11-25 02:17] LABS: Basophils % 0.3 % (0.0-0.8); Eosinophils % 0.3 % (0.00-10.9); Hematocrit 27.8 VOL% (35.7-47.0); Hemoglobin 8.8 GM/DL (12.0-16.0); Immature Granulocytes % 1.3 %; Immature Granulocytes Absolute 0.09 #; Lymphocytes # 0.4 10*3/uL (1.4-4.0); Lymphocytes % 5.7 % (21.3-54.2); Mean Corpuscular HGB Conc 31.7 GM/DL (32-36); Mean Corpuscular Hemoglobin 30 PG (27-34); Mean Corpuscular Volume 95.5 FL (87-102); Mean Platelet Volume 9.5 FL (9.6-12.0); Monocytes # 0.3 10*3/uL (0.11-0.8); Neutrophils # 6.2 10*3/uL (1.4-7.4); Neutrophils % 88.4 % (38.7-73.9); Platelet Count 117 T/CUMM (130-400); Red Blood Count 2.91 MC/CUMM (3.8-5.5); Red Cell Distribution Width 14.9 % (9.3-17.3)
[2018-11-25] MEDS: PYRIDOXINE 100 MG TABLET PO SCH (08:12)
[2018-11-25] MEDS: NEBIVOLOL 10 MG TABLET PO SCH (08:12)
[2018-11-25] MEDS: PANTOPRAZOLE 40 MG TABLET PO SCH (08:12)
[2018-11-25] MEDS: guaiFENesin/DM ER 600-30 MG TABLET PO SCH ×2 (08:12→20:14)
[2018-11-25] MEDS: CALCIUM (CARBONATE)/VITAMIN D 500 MG-200 UNIT TABLET PO SCH (08:12)
[2018-11-25] MEDS: FERRIC GLUCONATE COMPLEX 125 MG in SODIUM CHLORIDE 0.9% 100 ML IV SCH (08:13)
[2018-11-25] MEDS ORDERED: FUROSEMIDE 40 MG/4 ML VIAL IV ONE (09:06)
[2018-11-25 10:04] LABS: Partial Thromboplastin Time 30.8 SECS (0-40)
[2018-11-25] MEDS: CEFEPIME 2,000 MG in SYRINGE 1 EACH IV SCH ×2 (10:07→17:47)
[2018-11-25] MEDS ORDERED: MEROPENEM 500 MG in SYRINGE 1 EACH IV SCH (12:00)
[2018-11-25] MEDS ORDERED: MAGNESIUM SULF RIDER 4 GM in PREMIX 1 EACH IV PRN (17:19)
[2018-11-25] MEDS ORDERED: MAGNESIUM SULF RIDER 2 GM in PREMIX 1 EACH IV PRN (17:19)
[2018-11-25] MEDS ORDERED: AZITHROMYCIN 250 MG TABLET PO SCH (18:00)
[2018-11-25] MEDS: FUROSEMIDE 40 MG/4 ML VIAL IV SCH (18:23)
[2018-11-25] MEDS: ONDANSETRON 4 MG/2 ML VIAL IV PRN (20:14)
[2018-11-25] MEDS: ROSUVASTATIN 10 MG TABLET PO SCH (20:14)
[2018-11-25] MEDS: EZETIMIBE 10 MG TABLET PO SCH (20:15)
[2018-11-25] MEDS: MONTELUKAST 10 MG TABLET PO SCH (20:15)
[2018-11-26] MEDS: ALBUTEROL/IPRATROPIUM 3 ML NEB RESP TX SCH ×4 (00:10→19:06)
[2018-11-26 07:20] LABS: Basophils % 0.2 % (0.0-0.8); Eosinophils # 0.1 10*3/uL (0.0-0.87); Eosinophils % 1.6 % (0.00-10.9); Hematocrit 25.3 VOL% (35.7-47.0); Immature Granulocytes % 1.6 %; Immature Granulocytes Absolute 0.08 #; Lymphocytes # 0.4 10*3/uL (1.4-4.0); Lymphocytes % 8.8 % (21.3-54.2); Mean Corpuscular HGB Conc 31.6 GM/DL (32-36); Mean Corpuscular Hemoglobin 30 PG (27-34); Mean Corpuscular Volume 95.8 FL (87-102); Mean Platelet Volume 9.3 FL (9.6-12.0); Monocytes # 0.3 10*3/uL (0.11-0.8); Neutrophils # 3.9 10*3/uL (1.4-7.4); Neutrophils % 80.8 % (38.7-73.9); Platelet Count 110 T/CUMM (130-400); Red Blood Count 2.64 MC/CUMM (3.8-5.5); Red Cell Distribution Width 14.9 % (9.3-17.3); White Blood Count 4.9 T/CUMM (4-12)
[2018-11-26 07:21] LABS: PT Patient Result 11.1 SECS; Partial Thromboplastin Time 29.2 SECS (0-40)
[2018-11-26 07:37] LABS: Calcium 8.3 MG/DL (8.5-10.1); Potassium 3.3 MMOL/L (3.5-5.1)
[2018-11-26] MEDS: guaiFENesin/DM ER 600-30 MG TABLET PO SCH ×2 (08:24→21:09)
[2018-11-26] MEDS: NEBIVOLOL 10 MG TABLET PO SCH (08:24)
[2018-11-26] MEDS: PANTOPRAZOLE 40 MG TABLET PO SCH (08:25)
[2018-11-26] MEDS: PYRIDOXINE 100 MG TABLET PO SCH (08:25)
[2018-11-26] MEDS: CALCIUM (CARBONATE)/VITAMIN D 500 MG-200 UNIT TABLET PO SCH (08:25)
[2018-11-26] MEDS ORDERED: MEPERIDINE 50 MG/1 ML VIAL IM ONE (08:30)
[2018-11-26] MEDS ORDERED: BENZONATATE 100 MG CAPSULE PO ONE (08:30)
[2018-11-26] MEDS ORDERED: diphenhydrAMINE 50 MG/1 ML VIAL IM ONE (08:30)
[2018-11-26] MEDS: FUROSEMIDE 40 MG/4 ML VIAL IV SCH ×2 (08:40→15:05)
[2018-11-26 08:41] LABS: Hepatitis A Ab IgM Quant 0.23 Index; Hepatitis A Ab IgM Result Negative (Negative); Hepatitis B Core IgM Quant 0.12 Index; Hepatitis B Core IgM Result Negative (Negative); Hepatitis B Surface Ag Quant < 0.10 Index; Hepatitis B Surface Ag Result Negative (Negative); Hepatitis C Virus Ab Quant 0.11 Index; Hepatitis C Virus Ab Result Negative (Negative)
[2018-11-26] MEDS ORDERED: LIDOCAINE 1% 20 ML VIAL MISC INJ ONE (09:00)
[2018-11-26] MEDS ORDERED: LIDOCAINE 2% 20 ML VIAL RESP TX ONE (09:00)
[2018-11-26] MEDS ORDERED: LIDOCAINE 2% VISCOUS 100 ML BOTTLE SWISH/SPIT ONE (09:00)
[2018-11-26] MEDS: FERRIC GLUCONATE COMPLEX 125 MG in SODIUM CHLORIDE 0.9% 100 ML IV SCH (09:22)
[2018-11-26] MEDS: CEFEPIME 2,000 MG in SYRINGE 1 EACH IV SCH (10:53)
[2018-11-26 11:37] LABS: Anti-Nuclear Antibody Pattern Homogeneous
[2018-11-26] MEDS: POTASSIUM CHLORIDE 20 MEQ TABLET PO PRN (17:56)
[2018-11-26] MEDS ORDERED: hydrALAZINE 25 MG TABLET ONE (20:00)
[2018-11-26] MEDS: ROSUVASTATIN 10 MG TABLET PO SCH (21:09)
[2018-11-26] MEDS: EZETIMIBE 10 MG TABLET PO SCH (21:09)
[2018-11-26] MEDS: MONTELUKAST 10 MG TABLET PO SCH (21:10)
[2018-11-27] MEDS: ALBUTEROL/IPRATROPIUM 3 ML NEB RESP TX SCH ×2 (00:15→07:11)
[2018-11-27 04:40] LABS: Osmolality,Calculated 277.2 MOS/KG (273-304); Potassium 3.4 MMOL/L (3.5-5.1)
[2018-11-27 06:22] LABS: Basophils % 0.7 % (0.0-0.8); Eosinophils # 0.1 10*3/uL (0.0-0.87); Eosinophils % 2.8 % (0.00-10.9); Hematocrit 25.5 VOL% (35.7-47.0); Immature Granulocytes % 2.2 %; Lymphocytes # 0.7 10*3/uL (1.4-4.0); Lymphocytes % 15.3 % (21.3-54.2); Mean Corpuscular HGB Conc 31.4 GM/DL (32-36); Mean Corpuscular Hemoglobin 30 PG (27-34); Mean Corpuscular Volume 96.6 FL (87-102); Monocytes # 0.3 10*3/uL (0.11-0.8); Monocytes % 5.9 % (1.7-12.7); Neutrophils # 3.3 10*3/uL (1.4-7.4); Neutrophils % 73.1 % (38.7-73.9); Platelet Count 130 T/CUMM (130-400); Red Blood Count 2.64 MC/CUMM (3.8-5.5); Red Cell Distribution Width 15.1 % (9.3-17.3); White Blood Count 4.6 T/CUMM (4-12)
[2018-11-27] MEDS: PYRIDOXINE 100 MG TABLET PO SCH (08:21)
[2018-11-27] MEDS: NEBIVOLOL 10 MG TABLET PO SCH (08:21)
[2018-11-27] MEDS: CALCIUM (CARBONATE)/VITAMIN D 500 MG-200 UNIT TABLET PO SCH (08:21)
[2018-11-27] MEDS: PANTOPRAZOLE 40 MG TABLET PO SCH (08:21)
[2018-11-27] MEDS: guaiFENesin/DM ER 600-30 MG TABLET PO SCH ×2 (08:21→21:03)
[2018-11-27] MEDS: MUPIROCIN 2% OINT 22 GM TUBE TOP SCH ×2 (08:27→21:04)
[2018-11-27 08:45] LABS: Double Stranded DNA Antibodies 28.1 IU/ML
[2018-11-27] MEDS ORDERED: FUROSEMIDE 40 MG TABLET PO SCH (09:00)
[2018-11-27] MEDS ORDERED: ALBUTEROL/IPRATROPIUM 3 ML NEB RESP TX PRN (09:48)
[2018-11-27] MEDS ORDERED: RACEPINEPHRINE 0.5 ML NEB RESP TX SCH (10:00)
[2018-11-27] MEDS: FERRIC GLUCONATE COMPLEX 125 MG in SODIUM CHLORIDE 0.9% 100 ML IV SCH (10:18)
[2018-11-27] MEDS: CEFEPIME 2,000 MG in SYRINGE 1 EACH IV SCH (10:18)
[2018-11-27] MEDS: POTASSIUM CHLORIDE 20 MEQ TABLET PO PRN ×2 (10:19→17:08)
[2018-11-27] MEDS: RACEPINEPHRINE 0.5 ML NEB RESP TX SCH ×3 (11:07→19:03)
[2018-11-27 12:12] LABS: Apearance,Urine CLEAR (Clear); Bilirubin,Urine Negative (Negative); Blood, Urine Moderate mg/dL (Negative); Glucose,Urine (UA) Negative (Negative); Ketones,Urine Negative (Negative); Mucus,Urine Occasional /LPF (Occasional); Nitrite,Urine Negative (Negative); Protein,Urine Negative; RBC,Urine 97 /HPF (0-4); Squamous Epithelial Cell,Urine Occasional /HPF (0-10); Urine Color Yellow (Yellow); Urine Specific Gravity 1.008 (1.001-1.035); Urine Urobilinogen < 2.0 EU/DL (0.2-1.0); WBC,Urine <1 /HPF (0-6)
[2018-11-27 12:48] LABS: HIV Antigen/Antibody Result Nonreactive (Nonreactive); Hepatitis B Surface Ag Quant < 0.10 Index; Hepatitis B Surface Ag Result Negative (Negative); Hepatitis C Virus Ab Quant 0.12 Index; Hepatitis C Virus Ab Result Negative (Negative)
[2018-11-27] MEDS: POTASSIUM CHLORIDE 20 MEQ TABLET PO SCH (15:26)
[2018-11-27] MEDS: ONDANSETRON 4 MG/2 ML VIAL IV PRN (15:29)
[2018-11-27] MEDS: EZETIMIBE 10 MG TABLET PO SCH (21:03)
[2018-11-27] MEDS: DOXAZOSIN 1 MG TABLET PO SCH (21:03)
[2018-11-27] MEDS: MONTELUKAST 10 MG TABLET PO SCH (21:03)
[2018-11-27] MEDS: ROSUVASTATIN 10 MG TABLET PO SCH (21:04)
[2018-11-28 06:17] LABS: Basophils % 0.3 % (0.0-0.8); Eosinophils # 0.2 10*3/uL (0.0-0.87); Eosinophils % 5.1 % (0.00-10.9); Hemoglobin 7.6 GM/DL (12.0-16.0); Immature Granulocytes % 1.5 %; Immature Granulocytes Absolute 0.05 #; Lymphocytes # 0.5 10*3/uL (1.4-4.0); Lymphocytes % 15.2 % (21.3-54.2); Mean Corpuscular HGB Conc 31.7 GM/DL (32-36); Mean Corpuscular Hemoglobin 30 PG (27-34); Mean Corpuscular Volume 95.6 FL (87-102); Mean Platelet Volume 9.8 FL (9.6-12.0); Monocytes # 0.2 10*3/uL (0.11-0.8); Monocytes % 6.3 % (1.7-12.7); Neutrophils # 2.4 10*3/uL (1.4-7.4); Neutrophils % 71.6 % (38.7-73.9); Platelet Count 127 T/CUMM (130-400); Red Blood Count 2.51 MC/CUMM (3.8-5.5); Red Cell Distribution Width 14.7 % (9.3-17.3); White Blood Count 3.4 T/CUMM (4-12)
[2018-11-28 06:34] LABS: Calcium 8.2 MG/DL (8.5-10.1); Osmolality,Calculated 276.2 MOS/KG (273-304); Potassium 3.8 MMOL/L (3.5-5.1)
[2018-11-28] MEDS: RACEPINEPHRINE 0.5 ML NEB RESP TX SCH ×4 (07:17→19:19)
[2018-11-28] MEDS: guaiFENesin/DM ER 600-30 MG TABLET PO SCH ×2 (08:53→20:32)
[2018-11-28] MEDS: PANTOPRAZOLE 40 MG TABLET PO SCH (08:53)
[2018-11-28] MEDS: NEBIVOLOL 10 MG TABLET PO SCH (08:53)
[2018-11-28] MEDS: PYRIDOXINE 100 MG TABLET PO SCH (08:53)
[2018-11-28] MEDS: POTASSIUM CHLORIDE 20 MEQ TABLET PO SCH (08:53)
[2018-11-28] MEDS: CALCIUM (CARBONATE)/VITAMIN D 500 MG-200 UNIT TABLET PO SCH (08:53)
[2018-11-28] MEDS: MUPIROCIN 2% OINT 22 GM TUBE TOP SCH ×2 (08:54→22:07)
[2018-11-28] MEDS ORDERED: SODIUM CHLORIDE 0.9% 1,000 ML IV PRN (09:00)
[2018-11-28] MEDS: FERRIC GLUCONATE COMPLEX 125 MG in SODIUM CHLORIDE 0.9% 100 ML IV SCH (10:37)
[2018-11-28] MEDS: CEFEPIME 2,000 MG in SYRINGE 1 EACH IV SCH (10:37)
[2018-11-28 13:20] LABS: Glomerular Basement Membrane A < 0.2 U; Myeloperoxidase Antibody > 8.0 U
[2018-11-28 19:12] LABS: Hematocrit 26.5 VOL% (35.7-47.0); Hemoglobin 8.7 GM/DL (12.0-16.0)
[2018-11-28] MEDS: DOXAZOSIN 1 MG TABLET PO SCH (20:32)
[2018-11-28] MEDS: ROSUVASTATIN 10 MG TABLET PO SCH (20:32)
[2018-11-28] MEDS: MONTELUKAST 10 MG TABLET PO SCH (20:33)
[2018-11-28] MEDS: EZETIMIBE 10 MG TABLET PO SCH (20:33)
[2018-11-29 05:12] LABS: Basophils % 0.4 % (0.0-0.8); Eosinophils # 0.2 10*3/uL (0.0-0.87); Eosinophils % 4.9 % (0.00-10.9); Hematocrit 29.2 VOL% (35.7-47.0); Hemoglobin 9.5 GM/DL (12.0-16.0); Immature Granulocytes % 2.4 %; Immature Granulocytes Absolute 0.11 #; Lymphocytes # 0.7 10*3/uL (1.4-4.0); Lymphocytes % 15.4 % (21.3-54.2); Mean Corpuscular HGB Conc 32.5 GM/DL (32-36); Mean Corpuscular Hemoglobin 30 PG (27-34); Mean Corpuscular Volume 93.6 FL (87-102); Mean Platelet Volume 9.3 FL (9.6-12.0); Monocytes # 0.3 10*3/uL (0.11-0.8); Monocytes % 5.3 % (1.7-12.7); Neutrophils # 3.4 10*3/uL (1.4-7.4); Neutrophils % 71.6 % (38.7-73.9); Platelet Count 126 T/CUMM (130-400); Red Blood Count 3.12 MC/CUMM (3.8-5.5); Red Cell Distribution Width 16.2 % (9.3-17.3); White Blood Count 4.7 T/CUMM (4-12)
[2018-11-29 05:27] LABS: Calcium 8.3 MG/DL (8.5-10.1); Osmolality,Calculated 276.1 MOS/KG (273-304)
[2018-11-29] MEDS: RACEPINEPHRINE 0.5 ML NEB RESP TX SCH ×4 (07:14→19:03)
[2018-11-29] MEDS: predniSONE 20 MG TABLET PO SCH ×2 (08:23→08:26)
[2018-11-29] MEDS: NEBIVOLOL 10 MG TABLET PO SCH (08:23)
[2018-11-29] MEDS: PYRIDOXINE 100 MG TABLET PO SCH (08:23)
[2018-11-29] MEDS: POTASSIUM CHLORIDE 20 MEQ TABLET PO SCH (08:23)
[2018-11-29] MEDS: MUPIROCIN 2% OINT 22 GM TUBE TOP SCH ×2 (08:23→20:16)
[2018-11-29] MEDS: CALCIUM (CARBONATE)/VITAMIN D 500 MG-200 UNIT TABLET PO SCH (08:23)
[2018-11-29] MEDS: PANTOPRAZOLE 40 MG TABLET PO SCH (08:23)
[2018-11-29] MEDS: guaiFENesin/DM ER 600-30 MG TABLET PO SCH ×2 (08:23→20:16)
[2018-11-29] MEDS: CEFEPIME 2,000 MG in SYRINGE 1 EACH IV SCH (10:27)
[2018-11-29] MEDS: FERRIC GLUCONATE COMPLEX 125 MG in SODIUM CHLORIDE 0.9% 100 ML IV SCH (10:28)
[2018-11-29] MEDS: ONDANSETRON 4 MG/2 ML VIAL IV PRN (10:29)
[2018-11-29] MEDS: ROSUVASTATIN 10 MG TABLET PO SCH (20:15)
[2018-11-29] MEDS: EZETIMIBE 10 MG TABLET PO SCH (20:16)
[2018-11-29] MEDS: MONTELUKAST 10 MG TABLET PO SCH (20:16)
[2018-11-29] MEDS: DOXAZOSIN 1 MG TABLET PO SCH (20:16)
[2018-11-30] MEDS: RACEPINEPHRINE 0.5 ML NEB RESP TX SCH ×4 (07:15→18:55)
[2018-11-30 09:19] LABS: PT Patient Result 10.9 SECS; Partial Thromboplastin Time 31.7 SECS (0-40)
[2018-11-30] MEDS: FERRIC GLUCONATE COMPLEX 125 MG in SODIUM CHLORIDE 0.9% 100 ML IV SCH (09:48)
[2018-11-30] MEDS: POTASSIUM CHLORIDE 20 MEQ TABLET PO SCH (09:50)
[2018-11-30] MEDS: guaiFENesin/DM ER 600-30 MG TABLET PO SCH ×2 (09:50→21:41)
[2018-11-30] MEDS: CALCIUM (CARBONATE)/VITAMIN D 500 MG-200 UNIT TABLET PO SCH (09:50)
[2018-11-30] MEDS: PYRIDOXINE 100 MG TABLET PO SCH (09:50)
[2018-11-30] MEDS: NEBIVOLOL 10 MG TABLET PO SCH (09:50)
[2018-11-30] MEDS: PANTOPRAZOLE 40 MG TABLET PO SCH (09:50)
[2018-11-30] MEDS: predniSONE 20 MG TABLET PO SCH (09:51)
[2018-11-30] MEDS: MEROPENEM 500 MG in SODIUM CHLORIDE 0.9% 100 ML IV SCH (12:32)
[2018-11-30 14:02] LABS: Anti SS-A Antibodies > 100 EU/ML
[2018-11-30] MEDS: EZETIMIBE 10 MG TABLET PO SCH (21:41)
[2018-11-30] MEDS: ROSUVASTATIN 10 MG TABLET PO SCH (21:41)
[2018-11-30] MEDS: DOXAZOSIN 1 MG TABLET PO SCH (21:42)
[2018-11-30] MEDS: MUPIROCIN 2% OINT 22 GM TUBE TOP SCH ×2 (21:42→21:43)
[2018-11-30] MEDS: MONTELUKAST 10 MG TABLET PO SCH (21:42)
[2018-12-01] MEDS: MEROPENEM 500 MG in SODIUM CHLORIDE 0.9% 100 ML IV SCH ×3 (02:36→22:17)
[2018-12-01 04:58] LABS: Hematocrit 26.8 VOL% (35.7-47.0); Hemoglobin 8.6 GM/DL (12.0-16.0); Immature Granulocytes % 2.6 %; Immature Granulocytes Absolute 0.14 #; Lymphocytes # 0.5 10*3/uL (1.4-4.0); Lymphocytes % 8.8 % (21.3-54.2); Mean Corpuscular HGB Conc 32.1 GM/DL (32-36); Mean Corpuscular Hemoglobin 30 PG (27-34); Mean Platelet Volume 9.4 FL (9.6-12.0); Monocytes # 0.2 10*3/uL (0.11-0.8); Monocytes % 3.2 % (1.7-12.7); Neutrophils # 4.6 10*3/uL (1.4-7.4); Neutrophils % 85.4 % (38.7-73.9); Platelet Count 125 T/CUMM (130-400); Red Blood Count 2.85 MC/CUMM (3.8-5.5); Red Cell Distribution Width 15.7 % (9.3-17.3); White Blood Count 5.3 T/CUMM (4-12)
[2018-12-01 05:13] LABS: Calcium 8.5 MG/DL (8.5-10.1); Osmolality,Calculated 273.4 MOS/KG (273-304); Potassium 4.5 MMOL/L (3.5-5.1)
[2018-12-01] MEDS: RACEPINEPHRINE 0.5 ML NEB RESP TX SCH ×4 (07:35→19:54)
[2018-12-01] MEDS: NEBIVOLOL 10 MG TABLET PO SCH (08:47)
[2018-12-01] MEDS: guaiFENesin/DM ER 600-30 MG TABLET PO SCH ×2 (08:48→22:17)
[2018-12-01] MEDS: PYRIDOXINE 100 MG TABLET PO SCH (08:48)
[2018-12-01] MEDS: predniSONE 20 MG TABLET PO SCH (08:48)
[2018-12-01] MEDS: CALCIUM (CARBONATE)/VITAMIN D 500 MG-200 UNIT TABLET PO SCH (08:48)
[2018-12-01] MEDS: POTASSIUM CHLORIDE 20 MEQ TABLET PO SCH (08:48)
[2018-12-01] MEDS: PANTOPRAZOLE 40 MG TABLET PO SCH (08:48)
[2018-12-01] MEDS: FERRIC GLUCONATE COMPLEX 125 MG in SODIUM CHLORIDE 0.9% 100 ML IV SCH (08:59)
[2018-12-01] MEDS: methylPREDNISolone SOD SUC 40 MG/1 ML VIAL IV SCH ×2 (12:04→23:00)
[2018-12-01] MEDS: FERROUS SULFATE 325 MG TABLET PO SCH (12:04)
[2018-12-01] MEDS: MUPIROCIN 2% OINT 22 GM TUBE TOP SCH ×2 (20:22→22:17)
[2018-12-01] MEDS: ROSUVASTATIN 10 MG TABLET PO SCH (22:16)
[2018-12-01] MEDS: DOXAZOSIN 1 MG TABLET PO SCH (22:16)
[2018-12-01] MEDS: EZETIMIBE 10 MG TABLET PO SCH (22:16)
[2018-12-01] MEDS: MONTELUKAST 10 MG TABLET PO SCH (22:17)
[2018-12-02 06:23] LABS: Hematocrit 27.7 VOL% (35.7-47.0); Hemoglobin 8.8 GM/DL (12.0-16.0); Immature Granulocytes % 2.1 %; Immature Granulocytes Absolute 0.17 #; Lymphocytes # 0.6 10*3/uL (1.4-4.0); Mean Corpuscular HGB Conc 31.8 GM/DL (32-36); Mean Corpuscular Hemoglobin 30 PG (27-34); Mean Corpuscular Volume 95.2 FL (87-102); Mean Platelet Volume 9.2 FL (9.6-12.0); Monocytes # 0.2 10*3/uL (0.11-0.8); Monocytes % 2.4 % (1.7-12.7); Neutrophils # 7.1 10*3/uL (1.4-7.4); Neutrophils % 88.5 % (38.7-73.9); Platelet Count 138 T/CUMM (130-400); Red Blood Count 2.91 MC/CUMM (3.8-5.5)
[2018-12-02 07:01] LABS: Calcium 8.5 MG/DL (8.5-10.1); Osmolality,Calculated 279.2 MOS/KG (273-304)
[2018-12-02] MEDS: RACEPINEPHRINE 0.5 ML NEB RESP TX SCH (07:16)
[2018-12-02] MEDS: guaiFENesin/DM ER 600-30 MG TABLET PO SCH (10:46)
[2018-12-02] MEDS: PANTOPRAZOLE 40 MG TABLET PO SCH (10:46)
[2018-12-02] MEDS: NEBIVOLOL 10 MG TABLET PO SCH (10:46)
[2018-12-02] MEDS: POTASSIUM CHLORIDE 20 MEQ TABLET PO SCH (10:46)
[2018-12-02] MEDS: PYRIDOXINE 100 MG TABLET PO SCH (10:46)
[2018-12-02] MEDS: FERROUS SULFATE 325 MG TABLET PO SCH (10:46)
[2018-12-02] MEDS: MUPIROCIN 2% OINT 22 GM TUBE TOP SCH (10:47)
[2018-12-02] MEDS: methylPREDNISolone SOD SUC 40 MG/1 ML VIAL IV SCH (10:48)
[2018-12-02] MEDS: FERRIC GLUCONATE COMPLEX 125 MG in SODIUM CHLORIDE 0.9% 100 ML IV SCH (10:53)
[2018-12-02] MEDS: CALCIUM (CARBONATE)/VITAMIN D 500 MG-200 UNIT TABLET PO SCH (10:53)
[2018-12-02] MEDS: MEROPENEM 500 MG in SODIUM CHLORIDE 0.9% 100 ML IV SCH (12:19)
[2018-12-02 15:37] VITALS: BP 136/77
[2018-12-03 10:10] LABS: c-ANCA Negative (Negative); p-ANCA Positive (Negative)
== END 2018-12-02 17:25 | disposition home health service (06) | DRG 682 ==
LOC: N.5E → SUATTDRO 15:02
PROVIDERS: ADMIT Internal Medicine; ATTEND Family Medicine

== ENCOUNTER 2018-12-31 14:44 | Inpatient (IN) ==
[2018-12-31 15:20] LABS: Hematocrit 29.8 VOL% (35.7-47.0); Hemoglobin 9.2 GM/DL (12.0-16.0); Immature Granulocytes % 1.6 %; Immature Granulocytes Absolute 0.12 #; Lymphocytes # 0.8 10*3/uL (1.4-4.0); Mean Corpuscular HGB Conc 30.9 GM/DL (32-36); Mean Corpuscular Hemoglobin 32 PG (27-34); Mean Corpuscular Volume 102.8 FL (87-102); Mean Platelet Volume 9.6 FL (9.6-12.0); Monocytes # 0.2 10*3/uL (0.11-0.8); Monocytes % 2.2 % (1.7-12.7); Neutrophils # 6.7 10*3/uL (1.4-7.4); Neutrophils % 86.2 % (38.7-73.9); Platelet Count 106 T/CUMM (130-400); Red Cell Distribution Width 17.9 % (9.3-17.3); White Blood Count 7.7 T/CUMM (4-12)
[2018-12-31 15:42] LABS: Blood Urea Nitrogen 68 MG/DL (7-18); Calcium 7.6 MG/DL (8.5-10.1); Glucose 130 MG/DL (74-106); Sodium 143 MMOL/L (136-145)
[2018-12-31] MEDS ORDERED: ACETAMINOPHEN 325 MG TABLET PO PRN (16:27)
[2018-12-31] MEDS ORDERED: ONDANSETRON 4 MG/2 ML VIAL IV PRN (16:27)
[2018-12-31] MEDS ORDERED: METOPROLOL TARTRATE 5 MG/5 ML VIAL IV STA (16:51)
[2018-12-31] MEDS: MEROPENEM 500 MG in SODIUM CHLORIDE 0.9% 100 ML IV SCH (18:37)
[2018-12-31] MEDS: dilTIAZem Drip 125 MG/125 ML PREMIX IV SCH (19:05)
[2018-12-31 20:58] LABS: Hematocrit 26.6 VOL% (35.7-47.0); Hemoglobin 8.2 GM/DL (12.0-16.0)
[2018-12-31] MEDS: ROSUVASTATIN 10 MG TABLET PO SCH (21:25)
[2018-12-31] MEDS: EZETIMIBE 10 MG TABLET PO SCH (21:26)
[2018-12-31] MEDS: MONTELUKAST 10 MG TABLET PO SCH (21:26)
[2018-12-31] MEDS: predniSONE 10 MG TABLET PO SCH (21:26)
[2019-01-01] MEDS: DOXAZOSIN 1 MG TABLET PO SCH ×2 (01:32→20:33)
[2019-01-01 04:58] LABS: INR 1.1; PT Patient Result 12.2 SECS; Partial Thromboplastin Time 21.6 SECS (0-40)
[2019-01-01 05:04] LABS: Basophils % 0.2 % (0.0-0.8); Hemoglobin 8.4 GM/DL (12.0-16.0); Immature Granulocytes % 3.4 %; Lymphocytes # 0.6 10*3/uL (1.4-4.0); Lymphocytes % 9.3 % (21.3-54.2); Mean Corpuscular HGB Conc 31.1 GM/DL (32-36); Mean Corpuscular Hemoglobin 32 PG (27-34); Mean Corpuscular Volume 101.9 FL (87-102); Mean Platelet Volume 9.9 FL (9.6-12.0); Monocytes # 0.2 10*3/uL (0.11-0.8); Monocytes % 3.7 % (1.7-12.7); Neutrophils # 4.9 10*3/uL (1.4-7.4); Neutrophils % 83.4 % (38.7-73.9); Red Blood Count 2.65 MC/CUMM (3.8-5.5); Red Cell Distribution Width 17.9 % (9.3-17.3); White Blood Count 5.9 T/CUMM (4-12)
[2019-01-01 05:06] LABS: Platelet Count 95 T/CUMM (130-400)
[2019-01-01 05:17] LABS: % Iron Saturation 29.1 % (18-50); Ferritin 1035.3 ng/ml (8-252)
[2019-01-01 05:24] LABS: Calcium 7.3 MG/DL (8.5-10.1); Osmolality,Calculated 306.1 MOS/KG (273-304); Risk Ratio 2.65; Thyroid Stimulating Hormone 0.975 uIU/ml (0.358-3.74); VLDL CHOLESTEROL 29.2 MG/DL
[2019-01-01] MEDS: MEROPENEM 500 MG in SODIUM CHLORIDE 0.9% 100 ML IV SCH ×2 (06:17→18:26)
[2019-01-01 06:44] LABS: Apearance,Urine CLEAR (Clear); Bilirubin,Urine Negative (Negative); Blood, Urine Large mg/dL (Negative); Glucose,Urine (UA) Negative (Negative); Ketones,Urine Negative (Negative); Mucus,Urine Occasional /LPF (Occasional); Nitrite,Urine Negative (Negative); Protein,Urine Negative; RBC,Urine 20 /HPF (0-4); Renal Epithelial Cells,Urine Occasional /HPF (<1); Squamous Epithelial Cell,Urine Occasional /HPF (0-10); Urine Color Yellow (Yellow); Urine Specific Gravity 1.019 (1.001-1.035); Urine Urobilinogen < 2.0 EU/DL (0.2-1.0); WBC,Urine 6 /HPF (0-6)
[2019-01-01] MEDS ORDERED: DILTIAZEM 30 MG TABLET PO PRN (07:47)
[2019-01-01 07:54] LABS: Sedimentation Rate-Westergren 7 MM/HR (0-30)
[2019-01-01] MEDS: CALCIUM (CARBONATE)/VITAMIN D 600 MG-400 UNIT TABLET PO SCH (09:35)
[2019-01-01] MEDS: NEBIVOLOL 10 MG TABLET PO SCH (09:35)
[2019-01-01] MEDS: FERROUS SULFATE 325 MG TABLET PO SCH (09:35)
[2019-01-01] MEDS: predniSONE 10 MG TABLET PO SCH ×2 (09:36→20:32)
[2019-01-01] MEDS: PYRIDOXINE 100 MG TABLET PO SCH (09:36)
[2019-01-01] MEDS: DILTIAZEM CD 180 MG CAPSULE PO SCH (09:37)
[2019-01-01] MEDS: PANTOPRAZOLE 40 MG TABLET PO SCH (09:37)
[2019-01-01 10:17] LABS: Hemoglobin A1 (Alkaline) 97.3 % (96.5-98.5); Hemoglobin A2 (Alkaline) 2.7 % (1.5-3.5)
[2019-01-01 10:56] LABS: Vitamin B12 385 PG/ML (211-911)
[2019-01-01 11:05] LABS: Hematocrit 26.6 VOL% (35.7-47.0); Hemoglobin 8.2 GM/DL (12.0-16.0)
[2019-01-01 18:08] LABS: Hematocrit 25.1 VOL% (35.7-47.0); Hemoglobin 7.9 GM/DL (12.0-16.0)
[2019-01-01] MEDS ORDERED: SODIUM CHLORIDE 0.9% 1,000 ML IV PRN (18:28)
[2019-01-01] MEDS: MONTELUKAST 10 MG TABLET PO SCH (20:32)
[2019-01-01] MEDS: EZETIMIBE 10 MG TABLET PO SCH (20:33)
[2019-01-01] MEDS: ROSUVASTATIN 10 MG TABLET PO SCH (20:33)
[2019-01-01] MEDS: dilTIAZem Drip 125 MG/125 ML PREMIX IV SCH (20:45)
[2019-01-02 05:22] LABS: Basophils % 0.2 % (0.0-0.8); Hematocrit 34.2 VOL% (35.7-47.0); Hemoglobin 10.9 GM/DL (12.0-16.0); Immature Granulocytes % 3.9 %; Immature Granulocytes Absolute 0.23 #; Lymphocytes # 0.5 10*3/uL (1.4-4.0); Lymphocytes % 8.8 % (21.3-54.2); Mean Corpuscular HGB Conc 31.9 GM/DL (32-36); Mean Corpuscular Hemoglobin 31 PG (27-34); Mean Corpuscular Volume 96.3 FL (87-102); Mean Platelet Volume 9.6 FL (9.6-12.0); Monocytes # 0.1 10*3/uL (0.11-0.8); Monocytes % 2.2 % (1.7-12.7); Neutrophils # 5.1 10*3/uL (1.4-7.4); Neutrophils % 84.9 % (38.7-73.9); Platelet Count 71 T/CUMM (130-400); Red Blood Count 3.55 MC/CUMM (3.8-5.5); Red Cell Distribution Width 18.1 % (9.3-17.3); White Blood Count 5.9 T/CUMM (4-12)
[2019-01-02 05:42] LABS: Calcium 7.6 MG/DL (8.5-10.1); Osmolality,Calculated 303.3 MOS/KG (273-304); Osmolality,Calculated 304.1 MOS/KG (273-304); Potassium 5.1 MMOL/L (3.5-5.1)
[2019-01-02] MEDS: MEROPENEM 500 MG in SODIUM CHLORIDE 0.9% 100 ML IV SCH ×2 (06:07→17:00)
[2019-01-02 06:26] LABS: Lymphocytes 8 % (20-55); Segmented Neutrophils 89 % (50-85); Total Cells Counted 100
[2019-01-02 06:27] LABS: Anisocytosis 1+; Ovalocytes Few; Platelet Estimate Decreased
[2019-01-02] MEDS: predniSONE 10 MG TABLET PO SCH (08:38)
[2019-01-02] MEDS: PYRIDOXINE 100 MG TABLET PO SCH (08:38)
[2019-01-02] MEDS: PANTOPRAZOLE 40 MG TABLET PO SCH (08:38)
[2019-01-02] MEDS: NEBIVOLOL 10 MG TABLET PO SCH (08:38)
[2019-01-02] MEDS: CALCIUM (CARBONATE)/VITAMIN D 600 MG-400 UNIT TABLET PO SCH (08:38)
[2019-01-02] MEDS: FERROUS SULFATE 325 MG TABLET PO SCH (08:39)
[2019-01-02] MEDS: DILTIAZEM CD 180 MG CAPSULE PO SCH (08:39)
[2019-01-02] MEDS: EZETIMIBE 10 MG TABLET PO SCH (21:00)
[2019-01-02] MEDS: MONTELUKAST 10 MG TABLET PO SCH (21:00)
[2019-01-02] MEDS: DOXAZOSIN 1 MG TABLET PO SCH (21:00)
[2019-01-02] MEDS: ROSUVASTATIN 10 MG TABLET PO SCH (21:00)
[2019-01-03 03:02] LABS: Basophils % 0.2 % (0.0-0.8); Eosinophils % 0.2 % (0.00-10.9); Hematocrit 33.3 VOL% (35.7-47.0); Hemoglobin 10.7 GM/DL (12.0-16.0); Immature Granulocytes % 4.3 %; Immature Granulocytes Absolute 0.28 #; Lymphocytes # 0.8 10*3/uL (1.4-4.0); Lymphocytes % 11.8 % (21.3-54.2); Mean Corpuscular HGB Conc 32.1 GM/DL (32-36); Mean Corpuscular Hemoglobin 31 PG (27-34); Mean Corpuscular Volume 95.7 FL (87-102); Mean Platelet Volume 9.4 FL (9.6-12.0); Monocytes # 0.3 10*3/uL (0.11-0.8); Monocytes % 3.8 % (1.7-12.7); NRBC # 0.03 10*3/uL; Neutrophils # 5.2 10*3/uL (1.4-7.4); Neutrophils % 79.7 % (38.7-73.9); Red Blood Count 3.48 MC/CUMM (3.8-5.5); Red Cell Distribution Width 19.2 % (9.3-17.3); White Blood Count 6.5 T/CUMM (4-12)
[2019-01-03 03:04] LABS: Platelet Count 82 T/CUMM (130-400)
[2019-01-03 03:19] LABS: Potassium 4.8 MMOL/L (3.5-5.1)
[2019-01-03 03:20] LABS: Calcium 7.9 MG/DL (8.5-10.1); Osmolality,Calculated 299.1 MOS/KG (273-304); Potassium 4.8 MMOL/L (3.5-5.1)
[2019-01-03 03:29] LABS: Band Neutrophils 2 % (0-10); Lymphocytes 9 % (20-55); Reactive Lymphocytes 1+; Segmented Neutrophils 86 % (50-85)
[2019-01-03 03:30] LABS: Ovalocytes 1+; Platelet Estimate Decreased; Polychromasia Few
[2019-01-03 03:32] LABS: Total Cells Counted 100
[2019-01-03] MEDS: MEROPENEM 500 MG in SODIUM CHLORIDE 0.9% 100 ML IV SCH ×2 (05:53→17:20)
[2019-01-03] MEDS: CALCIUM (CARBONATE)/VITAMIN D 600 MG-400 UNIT TABLET PO SCH (08:17)
[2019-01-03] MEDS: DILTIAZEM CD 180 MG CAPSULE PO SCH (08:17)
[2019-01-03] MEDS: PYRIDOXINE 100 MG TABLET PO SCH (08:17)
[2019-01-03] MEDS: NEBIVOLOL 10 MG TABLET PO SCH (08:17)
[2019-01-03] MEDS: FERROUS SULFATE 325 MG TABLET PO SCH (08:18)
[2019-01-03] MEDS: PANTOPRAZOLE 40 MG TABLET PO SCH (08:18)
[2019-01-03] MEDS: MONTELUKAST 10 MG TABLET PO SCH (20:59)
[2019-01-03] MEDS: ROSUVASTATIN 10 MG TABLET PO SCH (20:59)
[2019-01-03] MEDS: DOXAZOSIN 1 MG TABLET PO SCH (20:59)
[2019-01-03] MEDS: EZETIMIBE 10 MG TABLET PO SCH (20:59)
[2019-01-04 05:03] LABS: Basophils % 0.4 % (0.0-0.8); Eosinophils # 0.1 10*3/uL (0.0-0.87); Eosinophils % 1.4 % (0.00-10.9); Hematocrit 34.2 VOL% (35.7-47.0); Immature Granulocytes Absolute 0.29 #; Lymphocytes # 0.7 10*3/uL (1.4-4.0); Lymphocytes % 14.6 % (21.3-54.2); Mean Corpuscular HGB Conc 32.2 GM/DL (32-36); Mean Corpuscular Hemoglobin 31 PG (27-34); Mean Corpuscular Volume 95.5 FL (87-102); Monocytes # 0.2 10*3/uL (0.11-0.8); Monocytes % 3.9 % (1.7-12.7); NRBC # 0.02 10*3/uL; Neutrophils # 3.6 10*3/uL (1.4-7.4); Neutrophils % 73.7 % (38.7-73.9); Platelet Count 67 T/CUMM (130-400); Red Blood Count 3.58 MC/CUMM (3.8-5.5); Red Cell Distribution Width 18.9 % (9.3-17.3); White Blood Count 4.9 T/CUMM (4-12)
[2019-01-04] MEDS: MEROPENEM 500 MG in SODIUM CHLORIDE 0.9% 100 ML IV SCH (05:31)
[2019-01-04 05:32] LABS: Calcium 7.6 MG/DL (8.5-10.1); Osmolality,Calculated 295.3 MOS/KG (273-304); Potassium 4.2 MMOL/L (3.5-5.1)
[2019-01-04 05:43] LABS: Hypochromasia 1+; Lymphocytes 16 % (20-55); Nucleated Red Blood Cells 1 (0-5); Ovalocytes Slight; Platelet Estimate Decreased; Segmented Neutrophils 81 % (50-85); Total Cells Counted 100
[2019-01-04] MEDS ORDERED: SILVER NITRATE STICK 1 EACH TOP ONE (10:00)
[2019-01-04 13:31] LABS: Glomerular Basement Membrane A < 0.2 U; Myeloperoxidase Antibody > 8.0 U
[2019-01-04] MEDS: FERROUS SULFATE 325 MG TABLET PO SCH (14:27)
[2019-01-04] MEDS: CALCIUM (CARBONATE)/VITAMIN D 600 MG-400 UNIT TABLET PO SCH (14:27)
[2019-01-04] MEDS: NEBIVOLOL 10 MG TABLET PO SCH (14:27)
[2019-01-04] MEDS: PYRIDOXINE 100 MG TABLET PO SCH (14:27)
[2019-01-04] MEDS: PANTOPRAZOLE 40 MG TABLET PO SCH (14:28)
[2019-01-04] MEDS: DILTIAZEM CD 180 MG CAPSULE PO SCH (14:28)
[2019-01-04] MEDS: predniSONE 5 MG TABLET PO SCH ×2 (14:29→21:46)
[2019-01-04] MEDS: DOXAZOSIN 1 MG TABLET PO SCH (21:45)
[2019-01-04] MEDS: ROSUVASTATIN 10 MG TABLET PO SCH (21:45)
[2019-01-04] MEDS: MONTELUKAST 10 MG TABLET PO SCH (21:46)
[2019-01-04] MEDS: MUPIROCIN 2% OINT 22 GM TUBE TOP SCH (21:46)
[2019-01-04] MEDS: EZETIMIBE 10 MG TABLET PO SCH (21:49)
[2019-01-05 05:22] LABS: PT Patient Result 10.7 SECS; Partial Thromboplastin Time 23.6 SECS (0-40)
[2019-01-05 05:25] LABS: Basophils % 0.2 % (0.0-0.8); Eosinophils % 0.2 % (0.00-10.9); Hematocrit 33.7 VOL% (35.7-47.0); Hemoglobin 11.2 GM/DL (12.0-16.0); Immature Granulocytes % 2.9 %; Immature Granulocytes Absolute 0.14 #; Lymphocytes # 0.5 10*3/uL (1.4-4.0); Lymphocytes % 9.7 % (21.3-54.2); Mean Corpuscular HGB Conc 33.2 GM/DL (32-36); Mean Corpuscular Hemoglobin 32 PG (27-34); Monocytes # 0.1 10*3/uL (0.11-0.8); Monocytes % 1.1 % (1.7-12.7); Neutrophils # 4.1 10*3/uL (1.4-7.4); Neutrophils % 85.9 % (38.7-73.9); Platelet Count 69 T/CUMM (130-400); Red Blood Count 3.51 MC/CUMM (3.8-5.5); Red Cell Distribution Width 18.4 % (9.3-17.3); White Blood Count 4.8 T/CUMM (4-12)
[2019-01-05 05:44] LABS: Calcium 7.9 MG/DL (8.5-10.1); Osmolality,Calculated 294.4 MOS/KG (273-304); Potassium 4.8 MMOL/L (3.5-5.1)
[2019-01-05 05:53] LABS: Hypochromasia 1+; Ovalocytes Slight; Platelet Estimate Decreased
[2019-01-05] MEDS ORDERED: LIDOCAINE 1% 20 ML VIAL MISC INJ ONE (08:00)
[2019-01-05] MEDS ORDERED: BENZONATATE 100 MG CAPSULE PO ONE (08:00)
[2019-01-05] MEDS ORDERED: MEPERIDINE 50 MG/1 ML VIAL IV ONE (08:00)
[2019-01-05] MEDS ORDERED: LIDOCAINE 2% 20 ML VIAL RESP TX ONE (08:00)
[2019-01-05] MEDS ORDERED: LIDOCAINE 2% VISCOUS 100 ML BOTTLE SWISH/SPIT ONE (08:00)
[2019-01-05] MEDS ORDERED: diphenhydrAMINE 50 MG/1 ML VIAL IM ONE (08:00)
[2019-01-05] MEDS ORDERED: MEPERIDINE 50 MG/1 ML VIAL IM ONE (08:00)
[2019-01-05] MEDS: NEBIVOLOL 10 MG TABLET PO SCH (11:12)
[2019-01-05] MEDS: PYRIDOXINE 100 MG TABLET PO SCH (11:12)
[2019-01-05] MEDS: predniSONE 5 MG TABLET PO SCH ×2 (11:13→22:01)
[2019-01-05] MEDS: CALCIUM (CARBONATE)/VITAMIN D 600 MG-400 UNIT TABLET PO SCH (11:13)
[2019-01-05] MEDS: DILTIAZEM CD 180 MG CAPSULE PO SCH (11:13)
[2019-01-05] MEDS: PANTOPRAZOLE 40 MG TABLET PO SCH (11:16)
[2019-01-05] MEDS: FERROUS SULFATE 325 MG TABLET PO SCH (11:16)
[2019-01-05] MEDS: MUPIROCIN 2% OINT 22 GM TUBE TOP SCH ×2 (11:16→22:02)
[2019-01-05 15:28] LABS: Histoplasma Immnodiffusion Negative (Negative)
[2019-01-05] MEDS: EZETIMIBE 10 MG TABLET PO SCH (22:01)
[2019-01-05] MEDS: ROSUVASTATIN 10 MG TABLET PO SCH (22:01)
[2019-01-05] MEDS: DOXAZOSIN 1 MG TABLET PO SCH (22:01)
[2019-01-05] MEDS: MONTELUKAST 10 MG TABLET PO SCH (22:02)
[2019-01-06 05:43] LABS: Basophils % 0.2 % (0.0-0.8); Hematocrit 32.6 VOL% (35.7-47.0); Hemoglobin 10.5 GM/DL (12.0-16.0); Immature Granulocytes % 1.6 %; Lymphocytes # 0.5 10*3/uL (1.4-4.0); Lymphocytes % 7.2 % (21.3-54.2); Mean Corpuscular HGB Conc 32.2 GM/DL (32-36); Mean Corpuscular Hemoglobin 31 PG (27-34); Mean Corpuscular Volume 95.6 FL (87-102); Mean Platelet Volume 9.9 FL (9.6-12.0); Monocytes # 0.2 10*3/uL (0.11-0.8); Monocytes % 2.7 % (1.7-12.7); Neutrophils # 5.7 10*3/uL (1.4-7.4); Neutrophils % 88.3 % (38.7-73.9); Platelet Count 73 T/CUMM (130-400); Red Blood Count 3.41 MC/CUMM (3.8-5.5); Red Cell Distribution Width 18.6 % (9.3-17.3); White Blood Count 6.4 T/CUMM (4-12)
[2019-01-06 05:54] LABS: Calcium 7.8 MG/DL (8.5-10.1); Osmolality,Calculated 305.3 MOS/KG (273-304); Potassium 4.7 MMOL/L (3.5-5.1)
[2019-01-06 06:07] LABS: Band Neutrophils 1 % (0-10); Hypochromasia 1+; Lymphocytes 6 % (20-55); Myelocytes 1 %; Platelet Estimate Decreased; Segmented Neutrophils 91 % (50-85); Total Cells Counted 100
[2019-01-06] MEDS: CALCIUM (CARBONATE)/VITAMIN D 600 MG-400 UNIT TABLET PO SCH (09:23)
[2019-01-06] MEDS: PYRIDOXINE 100 MG TABLET PO SCH (09:23)
[2019-01-06] MEDS: NEBIVOLOL 10 MG TABLET PO SCH (09:24)
[2019-01-06] MEDS: FERROUS SULFATE 325 MG TABLET PO SCH (09:26)
[2019-01-06] MEDS: MUPIROCIN 2% OINT 22 GM TUBE TOP SCH ×2 (09:35→21:38)
[2019-01-06] MEDS: predniSONE 5 MG TABLET PO SCH ×2 (09:35→21:38)
[2019-01-06] MEDS: PANTOPRAZOLE 40 MG TABLET PO SCH (09:36)
[2019-01-06] MEDS: DILTIAZEM CD 180 MG CAPSULE PO SCH (09:46)
[2019-01-06] MEDS: MONTELUKAST 10 MG TABLET PO SCH (21:38)
[2019-01-06] MEDS: ROSUVASTATIN 10 MG TABLET PO SCH (21:38)
[2019-01-06] MEDS: EZETIMIBE 10 MG TABLET PO SCH (21:38)
[2019-01-06] MEDS: DOXAZOSIN 1 MG TABLET PO SCH (21:38)
[2019-01-07 04:58] LABS: Basophils % 0.1 % (0.0-0.8); Hematocrit 33.6 VOL% (35.7-47.0); Hemoglobin 10.5 GM/DL (12.0-16.0); Immature Granulocytes Absolute 0.08 #; Lymphocytes # 0.5 10*3/uL (1.4-4.0); Lymphocytes % 6.2 % (21.3-54.2); Mean Corpuscular HGB Conc 31.3 GM/DL (32-36); Mean Corpuscular Hemoglobin 31 PG (27-34); Mean Corpuscular Volume 98.8 FL (87-102); Mean Platelet Volume 9.4 FL (9.6-12.0); Monocytes # 0.2 10*3/uL (0.11-0.8); Monocytes % 2.4 % (1.7-12.7); Neutrophils # 7.5 10*3/uL (1.4-7.4); Neutrophils % 90.3 % (38.7-73.9); Platelet Count 83 T/CUMM (130-400); Red Cell Distribution Width 18.6 % (9.3-17.3); White Blood Count 8.3 T/CUMM (4-12)
[2019-01-07 05:12] LABS: Calcium 8.1 MG/DL (8.5-10.1); Potassium 4.7 MMOL/L (3.5-5.1)
[2019-01-07 05:13] LABS: Albumin 2.5 G/DL (3.4-5.0); Calcium 8.2 MG/DL (8.5-10.1); Osmolality,Calculated 309.8 MOS/KG (273-304); Potassium 4.8 MMOL/L (3.5-5.1)
[2019-01-07 05:31] LABS: Band Neutrophils 3 % (0-10); Hypochromasia 1+; Lymphocytes 9 % (20-55); Myelocytes 1 %; Ovalocytes Slight; Platelet Estimate Decreased; Segmented Neutrophils 86 % (50-85); Total Cells Counted 100
[2019-01-07] MEDS: DILTIAZEM CD 180 MG CAPSULE PO SCH (09:32)
[2019-01-07] MEDS: NEBIVOLOL 10 MG TABLET PO SCH (09:33)
[2019-01-07] MEDS: CALCIUM (CARBONATE)/VITAMIN D 600 MG-400 UNIT TABLET PO SCH (09:33)
[2019-01-07] MEDS: predniSONE 5 MG TABLET PO SCH ×2 (09:33→20:45)
[2019-01-07] MEDS: FERROUS SULFATE 325 MG TABLET PO SCH (09:33)
[2019-01-07] MEDS: PYRIDOXINE 100 MG TABLET PO SCH (09:34)
[2019-01-07] MEDS: PANTOPRAZOLE 40 MG TABLET PO SCH (09:34)
[2019-01-07] MEDS: MUPIROCIN 2% OINT 22 GM TUBE TOP SCH ×2 (10:11→20:44)
[2019-01-07] MEDS: DOXAZOSIN 1 MG TABLET PO SCH (20:44)
[2019-01-07] MEDS: ROSUVASTATIN 10 MG TABLET PO SCH (20:44)
[2019-01-07] MEDS: EZETIMIBE 10 MG TABLET PO SCH (20:45)
[2019-01-07] MEDS: MONTELUKAST 10 MG TABLET PO SCH (20:45)
[2019-01-08] MEDS: PYRIDOXINE 100 MG TABLET PO SCH (10:23)
[2019-01-08] MEDS: NEBIVOLOL 10 MG TABLET PO SCH (10:23)
[2019-01-08] MEDS: predniSONE 5 MG TABLET PO SCH (10:23)
[2019-01-08] MEDS: DILTIAZEM CD 180 MG CAPSULE PO SCH (10:23)
[2019-01-08] MEDS: PANTOPRAZOLE 40 MG TABLET PO SCH (10:24)
[2019-01-08] MEDS: MUPIROCIN 2% OINT 22 GM TUBE TOP SCH (10:24)
[2019-01-08] MEDS: FERROUS SULFATE 325 MG TABLET PO SCH (10:24)
[2019-01-08] MEDS: CALCIUM (CARBONATE)/VITAMIN D 600 MG-400 UNIT TABLET PO SCH (10:24)
[2019-01-08 11:39] VITALS: BP 108/59
[2019-01-13 14:39] LABS: c-ANCA Negative (Negative); p-ANCA Positive (Negative)
== END 2019-01-08 12:50 | disposition swing bed (61) | DRG 982 ==
LOC: EDBD → EDUNIT# → N.ED 14:44 → N.EDINP 16:21 → SUATTDRO 16:21 → N.TELEN 17:23
PROVIDERS: ADMIT Hospitalist; ATTEND Internal Medicine

== ENCOUNTER 2019-02-15 20:05 | Inpatient (IN) ==
[2019-02-15 20:51] LABS: Basophils % 0.1 % (0.0-0.8); Eosinophils % 0.3 % (0.00-10.9); Hemoglobin 9.9 GM/DL (12.0-16.0); Immature Granulocytes % 1.7 %; Immature Granulocytes Absolute 0.15 #; Lymphocytes # 0.5 10*3/uL (1.4-4.0); Lymphocytes % 5.8 % (21.3-54.2); Mean Corpuscular HGB Conc 30.9 GM/DL (32-36); Mean Corpuscular Volume 103.6 FL (87-102); Mean Platelet Volume 9.8 FL (9.6-12.0); Monocytes % 2.5 % (1.7-12.7); NRBC # 0.02 10*3/uL; Neutrophils % 89.6 % (38.7-73.9); Red Blood Count 3.09 MC/CUMM (3.8-5.5); Red Cell Distribution Width 18.6 % (9.3-17.3); White Blood Count 8.8 T/CUMM (4-12)
[2019-02-15 21:01] LABS: INR 0.9; PT Patient Result 10.3 SECS; Partial Thromboplastin Time 22.1 SECS (0-40); Platelet Count 68 T/CUMM (130-400)
[2019-02-15] MEDS ORDERED: LEVOFLOXACIN INJ 500 MG in PREMIX 1 EACH IV STA (21:20)
[2019-02-15 21:30] LABS: Apearance,Urine CLEAR (Clear); Bilirubin,Urine Negative (Negative); Blood, Urine Moderate mg/dL (Negative); Glucose,Urine (UA) Negative (Negative); Ketones,Urine Negative (Negative); Mucus,Urine Occasional /LPF (Occasional); Nitrite,Urine Negative (Negative); Protein,Urine 30 MG/DL; RBC,Urine 29 /HPF (0-4); Squamous Epithelial Cell,Urine Occasional /HPF (0-10); Urine Color Yellow (Yellow); Urine Specific Gravity 1.018 (1.001-1.035); Urine Urobilinogen < 2.0 EU/DL (0.2-1.0); WBC,Urine 6 /HPF (0-6)
[2019-02-15] MEDS ORDERED: ONDANSETRON 4 MG/2 ML VIAL IV PRN (22:37)
[2019-02-15] MEDS ORDERED: NICOTINE 21 MG/24 HR PATCH TRANSDERM PRN (22:37)
[2019-02-15] MEDS ORDERED: diphenhydrAMINE CAP 25 MG CAPSULE PO PRN (22:37)
[2019-02-15] MEDS ORDERED: BISACODYL 5 MG TABLET PO PRN (22:37)
[2019-02-15] MEDS ORDERED: guaiFENesin/DM ER 600-30 MG TABLET PO PRN (22:37)
[2019-02-15 23:11] LABS: Anisocytosis Slight; Microcytosis Slight
[2019-02-15 23:12] LABS: Ovalocytes Few
[2019-02-15 23:13] LABS: Platelet Estimate Decreased
[2019-02-15 23:15] LABS: Bilirubin,Total 0.8 MG/DL (0.2-1.0); Calcium 8.2 MG/DL (8.5-10.1); Osmolality,Calculated 295.3 MOS/KG (273-304)
[2019-02-15 23:21] LABS: Risk Ratio 2.51; Thyroid Stimulating Hormone 0.916 uIU/ml (0.358-3.74); VLDL CHOLESTEROL 19.6 MG/DL
[2019-02-16] MEDS: ALBUTEROL/IPRATROPIUM 3 ML NEB RESP TX SCH ×4 (00:44→20:00)
[2019-02-16] MEDS ORDERED: ENOXAPARIN 60 MG/0.6 ML SYRINGE SUBCUT SCH (01:30)
[2019-02-16] MEDS: PANTOPRAZOLE 40 MG VIAL IV SCH ×3 (02:38→21:33)
[2019-02-16] MEDS: ASPIRIN 325 MG TABLET PO SCH ×2 (02:38→08:24)
[2019-02-16 05:31] LABS: Hematocrit 29.5 VOL% (35.7-47.0); Hemoglobin 9.5 GM/DL (12.0-16.0); Immature Granulocytes % 1.6 %; Immature Granulocytes Absolute 0.14 #; Lymphocytes # 0.5 10*3/uL (1.4-4.0); Lymphocytes % 6.1 % (21.3-54.2); Mean Corpuscular HGB Conc 32.2 GM/DL (32-36); Mean Platelet Volume 10.1 FL (9.6-12.0); Neutrophils % 90.3 % (38.7-73.9); Platelet Count 66 T/CUMM (130-400); Red Blood Count 2.92 MC/CUMM (3.8-5.5); Red Cell Distribution Width 18.5 % (9.3-17.3); White Blood Count 8.9 T/CUMM (4-12)
[2019-02-16 06:01] LABS: Albumin 1.8 G/DL (3.4-5.0); Calcium 8.2 MG/DL (8.5-10.1); Osmolality,Calculated 293.3 MOS/KG (273-304); Total Protein 4.8 G/DL (6.4-8.3)
[2019-02-16 06:03] LABS: Anisocytosis 1+; Platelet Estimate Decreased
[2019-02-16] MEDS ORDERED: PANTOPRAZOLE 40 MG TABLET PO SCH (09:00)
[2019-02-16 19:59] LABS: Calcium 7.4 MG/DL (8.5-10.1); Osmolality,Calculated 293.3 MOS/KG (273-304)
[2019-02-16] MEDS: LEVOFLOXACIN INJ 500 MG in PREMIX 1 EACH IV SCH (22:29)
[2019-02-17] MEDS: ALBUTEROL/IPRATROPIUM 3 ML NEB RESP TX SCH ×4 (00:35→19:26)
[2019-02-17 05:33] LABS: Basophils % 0.3 % (0.0-0.8); Eosinophils % 0.1 % (0.00-10.9); Hematocrit 29.4 VOL% (35.7-47.0); Hemoglobin 9.3 GM/DL (12.0-16.0); Immature Granulocytes % 2.4 %; Immature Granulocytes Absolute 0.16 #; Lymphocytes # 0.6 10*3/uL (1.4-4.0); Lymphocytes % 8.8 % (21.3-54.2); Mean Corpuscular HGB Conc 31.6 GM/DL (32-36); Mean Corpuscular Volume 102.4 FL (87-102); Mean Platelet Volume 9.7 FL (9.6-12.0); Monocytes % 3.4 % (1.7-12.7); NRBC # 0.02 10*3/uL; Platelet Count 66 T/CUMM (130-400); Red Blood Count 2.87 MC/CUMM (3.8-5.5); Red Cell Distribution Width 18.6 % (9.3-17.3); White Blood Count 6.7 T/CUMM (4-12)
[2019-02-17 06:13] LABS: Hypochromasia 1+; Lymphocytes 10 % (20-55); Ovalocytes Slight; Platelet Estimate Decreased; Segmented Neutrophils 87 % (50-85); Total Cells Counted 100
[2019-02-17 06:14] LABS: Microcytosis Slight
[2019-02-17] MEDS ORDERED: LACTATED RINGERS 500 ML IV SCH (08:00)
[2019-02-17] MEDS: PANTOPRAZOLE 40 MG VIAL IV SCH ×2 (08:25→21:31)
[2019-02-17] MEDS ORDERED: LIDOCAINE 100 MG/5 ML SYRINGE ONE (09:00)
[2019-02-17] MEDS ORDERED: ETOMIDATE 20 MG/10 ML VIAL IV ONE (09:00)
[2019-02-17] MEDS ORDERED: PROPOFOL 200 MG/20 ML VIAL IV ONE (09:00)
[2019-02-17] MEDS: ASPIRIN 325 MG TABLET PO SCH (15:02)
[2019-02-17] MEDS: FUROSEMIDE 20 MG TABLET PO SCH (15:02)
[2019-02-17] MEDS: DIGOXIN 0.25 MG TABLET PO SCH (15:02)
[2019-02-17] MEDS: DOXAZOSIN 1 MG TABLET PO SCH (21:31)
[2019-02-17] MEDS: EZETIMIBE 10 MG TABLET PO SCH (21:31)
[2019-02-17] MEDS: ROSUVASTATIN 10 MG TABLET PO SCH (21:31)
[2019-02-17] MEDS: predniSONE 10 MG TABLET PO SCH (21:31)
[2019-02-17] MEDS: MONTELUKAST 10 MG TABLET PO SCH (21:32)
[2019-02-18] MEDS: ALBUTEROL/IPRATROPIUM 3 ML NEB RESP TX SCH ×4 (00:11→19:41)
[2019-02-18 05:19] LABS: Eosinophils % 0.1 % (0.00-10.9); Hematocrit 29.7 VOL% (35.7-47.0); Hemoglobin 9.5 GM/DL (12.0-16.0); Immature Granulocytes % 3.2 %; Immature Granulocytes Absolute 0.24 #; Lymphocytes # 0.4 10*3/uL (1.4-4.0); Lymphocytes % 5.3 % (21.3-54.2); Mean Corpuscular Volume 101.4 FL (87-102); Mean Platelet Volume 9.8 FL (9.6-12.0); Monocytes % 1.5 % (1.7-12.7); Neutrophils % 89.9 % (38.7-73.9); Platelet Count 65 T/CUMM (130-400); Red Blood Count 2.93 MC/CUMM (3.8-5.5); Red Cell Distribution Width 18.3 % (9.3-17.3); White Blood Count 7.5 T/CUMM (4-12)
[2019-02-18 05:43] LABS: Calcium 7.5 MG/DL (8.5-10.1); Osmolality,Calculated 291.4 MOS/KG (273-304)
[2019-02-18 06:38] LABS: Hypochromasia 1+; Lymphocytes 2 % (20-55); Microcytosis Slight; Platelet Estimate Decreased; Segmented Neutrophils 98 % (50-85); Total Cells Counted 100
[2019-02-18] MEDS: predniSONE 10 MG TABLET PO SCH ×2 (09:02→21:25)
[2019-02-18] MEDS: PYRIDOXINE 100 MG TABLET PO SCH (09:03)
[2019-02-18] MEDS: FERROUS SULFATE 325 MG TABLET PO SCH (09:03)
[2019-02-18] MEDS: ASPIRIN 325 MG TABLET PO SCH (09:03)
[2019-02-18] MEDS: FUROSEMIDE 20 MG TABLET PO SCH (09:03)
[2019-02-18] MEDS: PANTOPRAZOLE 40 MG VIAL IV SCH ×2 (09:03→21:26)
[2019-02-18] MEDS: DIGOXIN 0.25 MG TABLET PO SCH (09:03)
[2019-02-18] MEDS: NEBIVOLOL 10 MG TABLET PO SCH (09:03)
[2019-02-18] MEDS: CALCIUM (CARBONATE)/VITAMIN D 600 MG-400 UNIT TABLET PO SCH (09:03)
[2019-02-18] MEDS: MEROPENEM 500 MG in SYRINGE 1 EACH IV SCH ×2 (12:31→21:24)
[2019-02-18] MEDS: ROSUVASTATIN 10 MG TABLET PO SCH (21:24)
[2019-02-18] MEDS: MONTELUKAST 10 MG TABLET PO SCH (21:25)
[2019-02-18] MEDS: DOXAZOSIN 1 MG TABLET PO SCH (21:25)
[2019-02-18] MEDS: EZETIMIBE 10 MG TABLET PO SCH (21:25)
[2019-02-18] MEDS: LEVOFLOXACIN INJ 500 MG in PREMIX 1 EACH IV SCH (22:31)
[2019-02-19] MEDS: ALBUTEROL/IPRATROPIUM 3 ML NEB RESP TX SCH ×4 (01:10→19:35)
[2019-02-19 05:48] LABS: Basophils % 0.1 % (0.0-0.8); Hematocrit 29.5 VOL% (35.7-47.0); Hemoglobin 9.5 GM/DL (12.0-16.0); Immature Granulocytes % 2.7 %; Immature Granulocytes Absolute 0.23 #; Lymphocytes # 0.3 10*3/uL (1.4-4.0); Lymphocytes % 3.7 % (21.3-54.2); Mean Corpuscular HGB Conc 32.2 GM/DL (32-36); Mean Corpuscular Volume 100.7 FL (87-102); Mean Platelet Volume 9.9 FL (9.6-12.0); Monocytes % 1.4 % (1.7-12.7); Neutrophils % 92.1 % (38.7-73.9); Red Blood Count 2.93 MC/CUMM (3.8-5.5); Red Cell Distribution Width 17.7 % (9.3-17.3); White Blood Count 8.6 T/CUMM (4-12)
[2019-02-19 05:51] LABS: Platelet Count 89 T/CUMM (130-400)
[2019-02-19 06:18] LABS: Anisocytosis 1+; Band Neutrophils 8 % (0-10); Lymphocytes 3 % (20-55); Macrocytosis Slight; Platelet Estimate Decreased; Poikilocytosis Slight; Segmented Neutrophils 88 % (50-85); Total Cells Counted 100
[2019-02-19 06:20] LABS: Calcium 7.4 MG/DL (8.5-10.1); Osmolality,Calculated 286.7 MOS/KG (273-304)
[2019-02-19] MEDS: ASPIRIN 325 MG TABLET PO SCH (08:50)
[2019-02-19] MEDS: FUROSEMIDE 20 MG TABLET PO SCH (08:50)
[2019-02-19] MEDS: CALCIUM (CARBONATE)/VITAMIN D 600 MG-400 UNIT TABLET PO SCH (08:50)
[2019-02-19] MEDS: predniSONE 10 MG TABLET PO SCH ×2 (08:50→21:04)
[2019-02-19] MEDS: NEBIVOLOL 10 MG TABLET PO SCH (08:50)
[2019-02-19] MEDS: DIGOXIN 0.25 MG TABLET PO SCH (08:50)
[2019-02-19] MEDS: PANTOPRAZOLE 40 MG VIAL IV SCH ×2 (08:51→21:04)
[2019-02-19] MEDS: PYRIDOXINE 100 MG TABLET PO SCH (08:51)
[2019-02-19] MEDS: FERROUS SULFATE 325 MG TABLET PO SCH (08:51)
[2019-02-19] MEDS: MEROPENEM 500 MG in SYRINGE 1 EACH IV SCH ×2 (08:59→21:03)
[2019-02-19] MEDS: ROSUVASTATIN 10 MG TABLET PO SCH (21:04)
[2019-02-19] MEDS: MONTELUKAST 10 MG TABLET PO SCH (21:04)
[2019-02-19] MEDS: EZETIMIBE 10 MG TABLET PO SCH (21:05)
[2019-02-19] MEDS: DOXAZOSIN 1 MG TABLET PO SCH (21:05)
[2019-02-19] MEDS: ACETAMINOPHEN 325 MG TABLET PO PRN (21:59)
[2019-02-20] MEDS: ALBUTEROL/IPRATROPIUM 3 ML NEB RESP TX SCH ×4 (01:29→19:19)
[2019-02-20 05:50] LABS: Basophils % 0.1 % (0.0-0.8); Hematocrit 30.3 VOL% (35.7-47.0); Hemoglobin 9.7 GM/DL (12.0-16.0); Immature Granulocytes % 2.3 %; Immature Granulocytes Absolute 0.17 #; Lymphocytes # 0.3 10*3/uL (1.4-4.0); Mean Corpuscular Volume 100.3 FL (87-102); Mean Platelet Volume 10.1 FL (9.6-12.0); Neutrophils % 91.6 % (38.7-73.9); Red Blood Count 3.02 MC/CUMM (3.8-5.5); Red Cell Distribution Width 17.6 % (9.3-17.3); White Blood Count 7.5 T/CUMM (4-12)
[2019-02-20 05:56] LABS: Platelet Count 97 T/CUMM (130-400)
[2019-02-20 06:19] LABS: Calcium 7.4 MG/DL (8.5-10.1); Osmolality,Calculated 288.8 MOS/KG (273-304)
[2019-02-20 06:21] LABS: Hypochromasia Slight; Lymphocytes 4 % (20-55); Microcytosis Slight; Platelet Estimate Decreased; Segmented Neutrophils 95 % (50-85); Total Cells Counted 100
[2019-02-20] MEDS: FUROSEMIDE 20 MG TABLET PO SCH (08:40)
[2019-02-20] MEDS: CALCIUM (CARBONATE)/VITAMIN D 600 MG-400 UNIT TABLET PO SCH (08:40)
[2019-02-20] MEDS: PYRIDOXINE 100 MG TABLET PO SCH (08:40)
[2019-02-20] MEDS: DIGOXIN 0.25 MG TABLET PO SCH (08:41)
[2019-02-20] MEDS: FERROUS SULFATE 325 MG TABLET PO SCH (08:41)
[2019-02-20] MEDS: NEBIVOLOL 10 MG TABLET PO SCH (08:41)
[2019-02-20] MEDS: predniSONE 10 MG TABLET PO SCH ×2 (08:41→20:54)
[2019-02-20] MEDS: ASPIRIN 325 MG TABLET PO SCH (08:41)
[2019-02-20] MEDS: MEROPENEM 500 MG in SYRINGE 1 EACH IV SCH ×2 (08:42→20:52)
[2019-02-20] MEDS: PANTOPRAZOLE 40 MG VIAL IV SCH ×2 (08:42→20:54)
[2019-02-20] MEDS: DOXYCYCLINE HYCLATE 100 MG CAPSULE PO SCH ×2 (08:51→20:55)
[2019-02-20] MEDS: ACETAMINOPHEN 325 MG TABLET PO PRN (10:43)
[2019-02-20] MEDS: DOXAZOSIN 1 MG TABLET PO SCH (20:39)
[2019-02-20] MEDS: EZETIMIBE 10 MG TABLET PO SCH (20:55)
[2019-02-20] MEDS: MONTELUKAST 10 MG TABLET PO SCH (20:55)
[2019-02-20] MEDS: ROSUVASTATIN 10 MG TABLET PO SCH (20:55)
[2019-02-20] MEDS: LEVOFLOXACIN INJ 500 MG in PREMIX 1 EACH IV SCH (22:47)
[2019-02-21] MEDS: ALBUTEROL/IPRATROPIUM 3 ML NEB RESP TX SCH ×4 (00:19→19:10)
[2019-02-21 05:34] LABS: Basophils % 0.3 % (0.0-0.8); Hematocrit 32.4 VOL% (35.7-47.0); Hemoglobin 10.4 GM/DL (12.0-16.0); Immature Granulocytes % 4.5 %; Immature Granulocytes Absolute 0.36 #; Lymphocytes # 0.3 10*3/uL (1.4-4.0); Lymphocytes % 4.1 % (21.3-54.2); Mean Corpuscular HGB Conc 32.1 GM/DL (32-36); Mean Corpuscular Volume 100.3 FL (87-102); Mean Platelet Volume 9.8 FL (9.6-12.0); Monocytes % 1.9 % (1.7-12.7); NRBC # 0.03 10*3/uL; Neutrophils % 89.2 % (38.7-73.9); Platelet Count 108 T/CUMM (130-400); Red Blood Count 3.23 MC/CUMM (3.8-5.5); Red Cell Distribution Width 17.7 % (9.3-17.3)
[2019-02-21 05:56] LABS: Calcium 7.5 MG/DL (8.5-10.1); Osmolality,Calculated 291.8 MOS/KG (273-304)
[2019-02-21 06:06] LABS: Hypochromasia Slight; Lymphocytes 3 % (20-55); Microcytosis Slight; Nucleated Red Blood Cells 1 (0-5); Ovalocytes Slight; Platelet Estimate Decreased; Segmented Neutrophils 93 % (50-85); Total Cells Counted 100
[2019-02-21] MEDS: PANTOPRAZOLE 40 MG VIAL IV SCH ×2 (08:31→21:46)
[2019-02-21] MEDS: FUROSEMIDE 20 MG TABLET PO SCH (08:32)
[2019-02-21] MEDS: FERROUS SULFATE 325 MG TABLET PO SCH (08:32)
[2019-02-21] MEDS: CALCIUM (CARBONATE)/VITAMIN D 600 MG-400 UNIT TABLET PO SCH (08:32)
[2019-02-21] MEDS: ASPIRIN 325 MG TABLET PO SCH (08:32)
[2019-02-21] MEDS: PYRIDOXINE 100 MG TABLET PO SCH (08:32)
[2019-02-21] MEDS: DOXYCYCLINE HYCLATE 100 MG CAPSULE PO SCH ×2 (08:32→21:47)
[2019-02-21] MEDS: MEROPENEM 500 MG in SYRINGE 1 EACH IV SCH ×2 (08:33→21:52)
[2019-02-21] MEDS: predniSONE 10 MG TABLET PO SCH ×2 (08:33→21:48)
[2019-02-21] MEDS: DOXAZOSIN 1 MG TABLET PO SCH (21:47)
[2019-02-21] MEDS: ROSUVASTATIN 10 MG TABLET PO SCH (21:47)
[2019-02-21] MEDS: EZETIMIBE 10 MG TABLET PO SCH (21:47)
[2019-02-21] MEDS: MONTELUKAST 10 MG TABLET PO SCH (21:47)
[2019-02-22] MEDS: ALBUTEROL/IPRATROPIUM 3 ML NEB RESP TX SCH ×5 (00:01→19:40)
[2019-02-22 05:52] LABS: Calcium 7.7 MG/DL (8.5-10.1); Osmolality,Calculated 294.7 MOS/KG (273-304)
[2019-02-22 06:57] LABS: Basophils % 0.3 % (0.0-0.8); Hematocrit 30.9 VOL% (35.7-47.0); Hemoglobin 9.9 GM/DL (12.0-16.0); Immature Granulocytes % 5.5 %; Immature Granulocytes Absolute 0.44 #; Lymphocytes # 0.5 10*3/uL (1.4-4.0); Lymphocytes % 6.4 % (21.3-54.2); Mean Platelet Volume 9.7 FL (9.6-12.0); Monocytes % 2.5 % (1.7-12.7); Neutrophils % 85.3 % (38.7-73.9); Platelet Count 104 T/CUMM (130-400); Red Blood Count 3.06 MC/CUMM (3.8-5.5); Red Cell Distribution Width 17.8 % (9.3-17.3)
[2019-02-22 07:19] LABS: Band Neutrophils 1 % (0-10); Lymphocytes 4 % (20-55); Platelet Estimate Decreased; Segmented Neutrophils 92 % (50-85); Total Cells Counted 100
[2019-02-22 07:20] LABS: Hypochromasia 1+; Microcytosis Slight
[2019-02-22] MEDS: ASPIRIN 325 MG TABLET PO SCH (08:39)
[2019-02-22] MEDS: PYRIDOXINE 100 MG TABLET PO SCH (08:39)
[2019-02-22] MEDS: NEBIVOLOL 5 MG TABLET PO SCH (08:39)
[2019-02-22] MEDS: PANTOPRAZOLE 40 MG VIAL IV SCH ×2 (08:39→21:59)
[2019-02-22] MEDS: MEROPENEM 500 MG in SYRINGE 1 EACH IV SCH ×2 (08:39→21:59)
[2019-02-22] MEDS: CALCIUM (CARBONATE)/VITAMIN D 600 MG-400 UNIT TABLET PO SCH (08:40)
[2019-02-22] MEDS: FUROSEMIDE 20 MG TABLET PO SCH (08:40)
[2019-02-22] MEDS: predniSONE 10 MG TABLET PO SCH ×2 (08:40→21:58)
[2019-02-22] MEDS: FERROUS SULFATE 325 MG TABLET PO SCH (08:40)
[2019-02-22] MEDS: DOXYCYCLINE HYCLATE 100 MG CAPSULE PO SCH (08:40)
[2019-02-22] MEDS ORDERED: APIXABAN 5 MG TABLET PO SCH (09:00)
[2019-02-22] MEDS: EZETIMIBE 10 MG TABLET PO SCH (21:58)
[2019-02-22] MEDS: ROSUVASTATIN 10 MG TABLET PO SCH (21:58)
[2019-02-22] MEDS: DOXAZOSIN 1 MG TABLET PO SCH (21:58)
[2019-02-22] MEDS: APIXABAN 2.5 MG TABLET PO SCH (21:58)
[2019-02-22] MEDS: MONTELUKAST 10 MG TABLET PO SCH (21:58)
[2019-02-23] MEDS: ALBUTEROL/IPRATROPIUM 3 ML NEB RESP TX SCH ×4 (00:40→19:01)
[2019-02-23 06:57] LABS: Basophils % 0.5 % (0.0-0.8); Eosinophils % 0.1 % (0.00-10.9); Hematocrit 32.3 VOL% (35.7-47.0); Hemoglobin 10.2 GM/DL (12.0-16.0); Immature Granulocytes % 6.3 %; Immature Granulocytes Absolute 0.51 #; Lymphocytes # 0.6 10*3/uL (1.4-4.0); Lymphocytes % 7.1 % (21.3-54.2); Mean Corpuscular HGB Conc 31.6 GM/DL (32-36); Mean Corpuscular Volume 100.6 FL (87-102); Mean Platelet Volume 9.6 FL (9.6-12.0); Monocytes % 2.8 % (1.7-12.7); Neutrophils % 83.2 % (38.7-73.9); Platelet Count 104 T/CUMM (130-400); Red Blood Count 3.21 MC/CUMM (3.8-5.5); Red Cell Distribution Width 17.9 % (9.3-17.3); White Blood Count 8.1 T/CUMM (4-12)
[2019-02-23 07:20] LABS: Anisocytosis 1+; Hypochromasia Slight; Lymphocytes 7 % (20-55); Macrocytosis 1+; Myelocytes 1 %; Ovalocytes Slight; Segmented Neutrophils 87 % (50-85); Total Cells Counted 100
[2019-02-23 07:58] LABS: Calcium 8.1 MG/DL (8.5-10.1); Osmolality,Calculated 296.5 MOS/KG (273-304)
[2019-02-23] MEDS: MEROPENEM 500 MG in SYRINGE 1 EACH IV SCH ×2 (09:27→22:08)
[2019-02-23] MEDS: PANTOPRAZOLE 40 MG VIAL IV SCH (09:27)
[2019-02-23] MEDS: CALCIUM (CARBONATE)/VITAMIN D 600 MG-400 UNIT TABLET PO SCH (09:28)
[2019-02-23] MEDS: ASPIRIN EC 81 MG TABLET PO SCH (09:28)
[2019-02-23] MEDS: APIXABAN 2.5 MG TABLET PO SCH ×2 (09:28→22:08)
[2019-02-23] MEDS: NEBIVOLOL 5 MG TABLET PO SCH (09:28)
[2019-02-23] MEDS: PYRIDOXINE 100 MG TABLET PO SCH (09:28)
[2019-02-23] MEDS: predniSONE 10 MG TABLET PO SCH ×2 (09:28→22:08)
[2019-02-23] MEDS: FERROUS SULFATE 325 MG TABLET PO SCH (09:28)
[2019-02-23] MEDS: FUROSEMIDE 20 MG TABLET PO SCH (09:28)
[2019-02-23 10:46] LABS: Apearance,Urine Clear (Clear); Protein,Urine Negative; Urine Color Yellow (Yellow)
[2019-02-23 10:47] LABS: Bilirubin,Urine Negative (Negative); Blood, Urine Negative (Negative); Glucose,Urine (UA) Negative (Negative); Ketones,Urine Negative (Negative); Nitrite,Urine Negative (Negative); Squamous Epithelial Cell,Urine Rare /HPF (0-10); Urine Urobilinogen < 2.0 EU/DL (0.2-1.0); WBC,Urine Rare /HPF (0-6)
[2019-02-23] MEDS: EZETIMIBE 10 MG TABLET PO SCH (22:07)
[2019-02-23] MEDS: DOXAZOSIN 1 MG TABLET PO SCH (22:07)
[2019-02-23] MEDS: MONTELUKAST 10 MG TABLET PO SCH (22:08)
[2019-02-23] MEDS: ROSUVASTATIN 10 MG TABLET PO SCH (22:08)
[2019-02-24] MEDS: ALBUTEROL/IPRATROPIUM 3 ML NEB RESP TX SCH ×3 (01:11→14:10)
[2019-02-24] MEDS ORDERED: PANTOPRAZOLE 40 MG TABLET PO SCH ×2 (06:30→09:00)
[2019-02-24 06:59] LABS: Basophils % 0.4 % (0.0-0.8); Hematocrit 31.3 VOL% (35.7-47.0); Hemoglobin 9.9 GM/DL (12.0-16.0); Immature Granulocytes % 7.2 %; Immature Granulocytes Absolute 0.57 #; Lymphocytes # 0.6 10*3/uL (1.4-4.0); Lymphocytes % 7.1 % (21.3-54.2); Mean Corpuscular HGB Conc 31.6 GM/DL (32-36); Mean Corpuscular Volume 102.6 FL (87-102); Mean Platelet Volume 9.8 FL (9.6-12.0); Monocytes % 2.2 % (1.7-12.7); Neutrophils % 83.1 % (38.7-73.9); Platelet Count 111 T/CUMM (130-400); Red Blood Count 3.05 MC/CUMM (3.8-5.5); Red Cell Distribution Width 17.8 % (9.3-17.3); White Blood Count 7.9 T/CUMM (4-12)
[2019-02-24 07:22] LABS: Band Neutrophils 1 % (0-10); Hypochromasia 1+; Lymphocytes 5 % (20-55); Microcytosis Slight; Myelocytes 2 %; Ovalocytes Slight; Platelet Estimate Decreased; Segmented Neutrophils 91 % (50-85); Total Cells Counted 100
[2019-02-24 07:29] LABS: Calcium 8.1 MG/DL (8.5-10.1); Osmolality,Calculated 304.3 MOS/KG (273-304)
[2019-02-24] MEDS: FUROSEMIDE 20 MG TABLET PO SCH (09:39)
[2019-02-24] MEDS: predniSONE 10 MG TABLET PO SCH (09:39)
[2019-02-24] MEDS: CALCIUM (CARBONATE)/VITAMIN D 600 MG-400 UNIT TABLET PO SCH (09:39)
[2019-02-24] MEDS: PYRIDOXINE 100 MG TABLET PO SCH (09:39)
[2019-02-24] MEDS: NEBIVOLOL 5 MG TABLET PO SCH (09:39)
[2019-02-24] MEDS: FERROUS SULFATE 325 MG TABLET PO SCH (09:40)
[2019-02-24] MEDS: ASPIRIN EC 81 MG TABLET PO SCH (09:40)
[2019-02-24] MEDS: MEROPENEM 500 MG in SYRINGE 1 EACH IV SCH (09:40)
[2019-02-24] MEDS: APIXABAN 2.5 MG TABLET PO SCH (09:40)
[2019-02-24] MEDS ORDERED: TUBERCULIN SKIN TEST 0.1 ML SYRINGE INTRADERM ONE (10:52)
[2019-02-24 12:43] VITALS: BP 100/57
[2019-03-01] MEDS ORDERED: APIXABAN 2.5 MG TABLET PO SCH (09:00)
== END 2019-02-24 14:33 | disposition home health service (06) | DRG 167 ==
LOC: EDUNIT# → EDBD → N.ED 20:05 → SUATTDRO 22:37 → N.EDINP 22:37 → N.5E 23:45
PROVIDERS: ADMIT Internal Medicine; ATTEND Internal Medicine

== ENCOUNTER 2019-03-19 15:41 | Inpatient (IN) ==
[2019-03-19 16:51] LABS: Calcium 7.3 MG/DL (8.5-10.1); Osmolality,Calculated 293.3 MOS/KG (273-304)
[2019-03-19 16:54] LABS: Basophils % 0.2 % (0.0-0.8); Hematocrit 30.7 VOL% (35.7-47.0); Hemoglobin 9.4 GM/DL (12.0-16.0); Immature Granulocytes % 1.6 %; Immature Granulocytes Absolute 0.13 #; Lymphocytes # 0.5 10*3/uL (1.4-4.0); Lymphocytes % 5.8 % (21.3-54.2); Mean Corpuscular HGB Conc 30.6 GM/DL (32-36); Mean Corpuscular Volume 107.7 FL (87-102); Mean Platelet Volume 10.4 FL (9.6-12.0); Monocytes % 2.2 % (1.7-12.7); NRBC # 0.09 10*3/uL; Neutrophils % 90.2 % (38.7-73.9); Platelet Count 66 T/CUMM (130-400); Red Blood Count 2.85 MC/CUMM (3.8-5.5); Red Cell Distribution Width 18.8 % (9.3-17.3); White Blood Count 8.1 T/CUMM (4-12)
[2019-03-19] MEDS ORDERED: LACTATED RINGERS 1,000 ML IV SCH (17:00)
[2019-03-19 17:37] LABS: Anisocytosis 2+; Atypical Lymphocytes 1+; Band Neutrophils 3 % (0-10); Lymphocytes 7 % (20-55); Macrocytosis 2+; Nucleated Red Blood Cells 1 (0-5); Poikilocytosis 1+; Segmented Neutrophils 90 % (50-85); Total Cells Counted 100
[2019-03-19 17:38] LABS: Burr Cells Slight; Platelet Estimate Decreased; Polychromasia 2+; Spherocytes 1+
[2019-03-19 17:55] LABS: Apearance,Urine Slightly Hazy (Clear); Bacteria,Urine Occasional /HPF (Few); Bilirubin,Urine Negative (Negative); Blood, Urine Negative (Negative); Glucose,Urine (UA) Negative (Negative); Hyaline Casts,Urine 3 /LPF (0-3); Ketones,Urine Negative (Negative); Mucus,Urine Occasional /LPF (Occasional); Nitrite,Urine Negative (Negative); Protein,Urine Negative; RBC,Urine 37 /HPF (0-4); Squamous Epithelial Cell,Urine Occasional /HPF (0-10); Urine Color Amber (Yellow); Urine Specific Gravity 1.019 (1.001-1.035); WBC,Urine 5 /HPF (0-6)
[2019-03-19] MEDS ORDERED: LORazepam 2 MG/1 ML VIAL IV PRN (18:59)
[2019-03-19] MEDS ORDERED: fentaNYL 25 MCG/HR PATCH TRANSDERM SCH (19:00)
[2019-03-19] MEDS: MORPHINE 4 MG/1 ML VIAL IV PRN (20:47)
[2019-03-20] MEDS: MORPHINE 4 MG/1 ML VIAL IV PRN ×2 (03:13→08:06)
[2019-03-20 08:09] VITALS: BP 68/44
== END 2019-03-20 15:20 | disposition expired | DRG 871 ==
LOC: EDBD → EDUNIT# → N.ED 15:41 → N.EDINP 15:41 → SUATTDRO 19:00 → N.4E 19:27
PROVIDERS: ADMIT Internal Medicine; ATTEND Internal Medicine